=== PATIENT | male | born 1945 | race Caucasian/White ===

== ENCOUNTER → 2017-12-26 | Outpatient (CLI) | payer OTHER, BC | END | disposition home or self-care (01) | LOC: C.PATHSPEC 14:36 | PROVIDERS: ATTEND Dermatology | DX: L82.0 Inflamed seborrheic keratosis (principal) ==

== ENCOUNTER → 2018-01-01 | Outpatient (CLI) | payer OTHER, BC ==
[2018-01-01 09:34] LABS: BASO % 0.7 %; BASO ABS # 0.07 K/uL (0-0.2); EOS % 4.7 %; EOS ABS # 0.46 K/uL (0-0.5); HEMATOCRIT 44.7 % (42-52); HEMOGLOBIN 15.7 g/dL (14.0-18.0); IG# 0.05 K/uL (0.00-0.02); LYMPH % 24.9 %; LYMPH ABS # 2.44 K/uL (1.2-3.4); MEAN CELL VOLUME 91.2 fL (80-100); MEAN CORPUSCULAR HGB CONC 35.1 g/dl (32-36); MEAN PLATELET VOLUME 11.7 fL (7.4-10.4); MONO % 8.1 %; MONO ABS # 0.79 K/uL (0.11-0.59); NEUT % 61.1 %; PLATELET COUNT 337 K/uL (130-400); RED CELL DISTRIBUTION WIDTH CV 13.9 % (11.5-14.5); RED CELL DISTRIBUTION WIDTH SD 46.7 fL (36.4-46.3); WHITE BLOOD COUNT 9.81 K/uL (4.8-10.8)
[2018-01-01 09:36] LABS: HEMOGLOBIN A1C 6.9 % (4.5-5.6)
[2018-01-01 09:39] LABS: ALBUMIN 3.5 gm/dl (3.4-5.0); ALT/SGPT 40 U/L (12-78); BLOOD UREA NITROGEN 15 mg/dl (7-18); CALCIUM 9.6 mg/dl (8.5-10.1); CARBON DIOXIDE 27 mmol/L (21-32); CHOLESTEROL 153 mg/dl (0-200); CREATININE 0.87 mg/dl (0.60-1.40); GLUCOSE 166 mg/dl (70-99); POTASSIUM 3.9 mmol/L (3.5-5.1); SODIUM 135 mmol/L (136-145)
[2018-01-01 09:43] LABS: ALKALINE PHOSPHATASE 76 U/L (45-117); AST/SGOT 22 U/L (15-37); LDL CHOLESTEROL CALCULATED 79 mg/dl; TOTAL PROTEIN 7.3 gm/dl (6.4-8.2)
== END | disposition home or self-care (01) ==
LOC: C.LAB1850 07:17
PROVIDERS: ATTEND Internal Medicine
DX: Z00.00 Encounter for general adult medical examination without abnormal findings (principal); I10 Essential (primary) hypertension; E11.9 Type 2 diabetes mellitus without complications; E78.5 Hyperlipidemia, unspecified

== ENCOUNTER 2024-11-06 03:46 | Inpatient (IN) ==
[2024-11-06] MEDS: SODIUM CHLORIDE 0.9% 1,000 ML IV SCH (03:45)
[2024-11-06] MEDS: SODIUM CHLORIDE 0.9% 1,000 ML IV ONE ×2 (04:00→05:14)
[2024-11-06] MEDS: OPTIRAY 320 100ml IV ONE (04:26)
[2024-11-06] MEDS: NOREPINEPHRINE/D5W 4 MG/250 ML PLCT IV SCH (04:29)
[2024-11-06] MEDS ORDERED: STAT IV Infusion **Titration per Protocol STA (04:29)
[2024-11-06 04:40] LABS: Basophils # (auto) 0.01 K/uL (0.00-0.20); Basophils % (auto) 0.1 %; Eosinophils % (auto) 2.6 %; Hematocrit (blood only) 47.1 % (42.0-52.0); Hemoglobin 16.3 g/dl (14.0-18.0); Immature Granulocytes # (auto) 0.08 K/uL (0.01-0.20); Immature Granulocytes % (auto) 0.7 %; Lymphocytes # (auto) 1.54 K/uL (1.20-3.40); Lymphocytes % (auto) 13.3 %; Mean Corpuscular Hemoglobin 31.9 pg (25.0-34.0); Mean Corpuscular Hgb Conc 34.6 g/dL (32.0-36.0); Mean Corpuscular Volume 92.2 fL (80.0-100.0); Mean Platelet Volume 10.3 fL (9.4-12.4); Monocytes # (auto) 0.33 K/uL (0.11-0.59); Monocytes % (auto) 2.9 %; Neutrophils # (auto) 9.28 K/uL (1.40-6.50); Neutrophils % (auto) 80.4 %; Platelet Count 362 K/uL (130-400); RDW Coefficient of Variation 13.4 % (11.5-14.5); RDW Standard Deviation 45.6 fL (36.4-46.3); Red Blood Count 5.11 M/uL (4.70-6.10); White Blood Count 11.54 K/ul (4.8-10.8)
[2024-11-06 04:45] LABS: Appearance Urine Clear (Clear); Bilirubin Urine Negative (Negative); Blood Urine Negative (Negative); Color Urine Yellow; Glucose Urine UA Negative (Negative); Ketones Urine Negative (Negative); Leukocyte Esterase Urine Negative (Negative); Nitrite Urine Negative (Negative); Protein Urine Negative (Negative); Specific Gravity Urine 1.008 (1.000-1.030); Urobilinogen Urine Negative (Negative)
[2024-11-06] MEDS: NOREPINEPHRINE/D5W 4 MG/250 ML IV ONE (04:47)
[2024-11-06] MEDS: CEFEPIME 2000MG 2,000 MG/20 ML SYR IV STA (04:48)
[2024-11-06 04:56] LABS: Albumin Globulin Ratio 1.4 (0.9-2); BUN Creatinine Ratio 14.3 (10-20); Bilirubin,Total 0.5 mg/dl (0.2-1.0); Calcium 7.8 mg/dl (8.6-10.3); Creatinine Clr Calc Pharmacy 64.4 ml/min; Globulin 2.1 gm/dl (2.5-4.0); Total Protein 5.1 gm/dl (6.0-8.3)
[2024-11-06 05:04] LABS: Troponin I High Sensitivity 19.3 pg/ml (0-20)
[2024-11-06 05:06] LABS: INR 1.2 (0.9-1.1); Partial Thromboplastin Ratio 0.9; Partial Thromboplastin Time 24 Seconds (21-31); Prothrombin Time 12.5 Seconds (9.0-12.0)
--- NOTE | 2024-11-06 05:17 | CT Scan Report ---
EXAM: CT head/brain wo con CLINICAL HISTORY: FELT NAUSEA THEN FELL TO THE FLOOR TECHNIQUE: Axial non-contrast CT scan of the brain was performed from the skull base to the high parietal region. One of the following dose reduction techniques were utilized for this exam: Automated exposure control, adjustment of the mA and/or kV according to patient size, use of iterative reconstruction. COMPARISON: None. FINDINGS: Brain Parenchyma: Scattered millimetric foci of decreased attenuation are seen within the periventricular-subcortical white matter on both centrum semiovale. Otherwise, the brain parenchyma is normal in attenuation with no evidence of mass, hemorrhage, midline shift, hydrocephalus, extra-axial fluid, or acute infarction. Normal attenuation of the cerebellum, and brainstem. No evidence of acute infarct, hemorrhage, or mass effect. Ventricular System: Ventricles are normal in size and configuration. No evidence of hydrocephalus or ventricular enlargement. Subarachnoid Spaces: Normal sulci and cisterns. No evidence of subarachnoid hemorrhage or extra-axial fluid collections. Cerebellum and Brainstem: Normal size and signal. No masses, lesions, or areas of abnormal signal. Orbits: Normal appearance of the globes, optic nerves, and extraocular muscles. No evidence of orbital masses or abnormal signal. Sinuses: Bilateral moderate ethmoidal sinusitis. Bilateral minimal sphenoidal sinusitis. Mastoid Air Cells: Clear mastoid air cells. No evidence of mastoiditis. Skull: Normal skull morphology. IMPRESSION: 1. 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 2. No sizable acute pathology. If clinically suspected, further evaluation with MR recommended. 3. Bilateral moderate ethmoidal sinusitis. 4. Bilateral minimal sphenoidal sinusitis. Electronically signed by Mansoor Dallas 11-06-2024 05:17 AM
--- NOTE | 2024-11-06 05:23 | Emergency Department Note ---
Impression & Plan Sepsis, Atrial fibrillation with rapid ventricular response, Acute hypotension, Fall, Chronic anticoagulation, Hypothermia ED Provider Note CHIEF COMPLAINT: Fall, hypotension HISTORY OF PRESENT ILLNESS: This 79-year-old male patient with past medical history of atrial fibrillation, diabetes, hypertension, obesity, GERD presents to the emergency department by EMS after a fall in the bathroom. Patient states he woke up in the middle the night and felt as though he might need to use the bathroom with some abdominal discomfort. He made it onto the toilet, but did not have any success with a bowel movement. He states the next thing he knew he was on the floor. His heard him calling out and called the ambulance. The patient does take Eliquis for his atrial fibrillation. He states he was at a football alliance party this evening and had 2 glasses of wine. This is not uncommon for him. He denies any chest pain or shortness of breath, fevers, vomiting or diarrhea. He notes a mass in the epigastric region that they believe is related to "scar tissue" after abdominal surgery years ago secondary to perforated appendicitis. REVIEW OF SYSTEMS: A review of systems was performed with positives and pertinent negatives listed in the history of present illness. 10 systems were reviewed and are otherwise negative. ALLERGIES: see below MEDICATIONS: see below PMH: see below SOCIAL HISTORY: see below DDx: Dehydration, acute kidney injury, pneumonia, UTI, bowel ischemia, bowel obstruction, colitis, sepsis among others. PHYSICAL EXAM: Vital signs reviewed. Noted to be hypothermic and hypotensive, slightly tachycardic. Hypoxic requiring nasal cannula oxygen. General: Somewhat ill-appearing 79-year-old male, in no significant distress. HEENT: No scleral icterus, PERRLA, neck supple. Atraumatic. Cardiovascular: Tachycardic and irregular. Pulmonary: Clear to auscultation bilaterally, normal work of breathing. Abdomen: Soft, nontender, nondistended, positive bowel sounds. Musculoskeletal: Atraumatic, no peripheral edema. Nontender to palpation over the cervical, thoracic and lumbar spines Neurologic: Patient awake alert and answers questions appropriately. Follows commands. Skin: Warm, dry, no rash. No ecchymosis or wounds to suggest trauma. EMERGENCY DEPARTMENT COURSE/MDM: This patient was evaluated and appeared to be in no significant distress however is noted to be hypothermic, hypoxic and hypotensive. Patient was awake and conversant although weak. IV access had been obtained, a second line was obtained in the emergency department. Patient's laboratory work is significant for a white count of 11.4, hemoglobin of 16, lactate of 5.6 with a K of 3.0. EKG was performed and reveals atrial fibrillation with RVR at 116 bpm. There is no evidence of acute ischemia. Due to the fall and chronic anticoagulation, trauma alert had been called. Patient was sent for CT imaging of the head, C-spine, chest, abdomen and pelvis. These images are significant for the right hepatic lobe with a subcapsular hypodense area that is read as perfusional changes versus laceration, however the patient's hemoglobin has remained stable, he has a negative FAST exam and this lesion is present on previous imaging. There is also an area of the left pubic bone which may represent osteitis. The patient has received 3 full liters of normal saline solution and is currently on Levophed being titrated up and remains hypotensive. Patient has been given cefepime and Flagyl IV. Wise catheter was placed and urine is negative. Consultation with Dr. Wolfe of the hospitalist service has been placed. Family has been updated on multiple occasions. Critical care nurse practitioner is at the bedside. MONITORING: An order for cardiac monitoring was placed and the patient is noted to be in a rapid atrial fibrillation at 110 beats per minute. RADIOLOGY: CT imaging of the head to my interpretation reveals no evidence of acute intracranial abnormality. CT imaging of the cervical spine per radiology reveals no evidence of acute fracture. CT imaging of the chest per radiology reveals no pulmonary consolidation, no fracture. CT imaging of the abdomen and pelvis per radiology: IMPRESSION: 1. Right hepatic lobe segment VII subcapsular hypodense area that could represent perfusional changes versus laceration. Advise sonography correlation and follow-up. 2. Shrunken dysmorphic splenic configuration with calcifications. 3. Mildly enlarged prostate. 4. Colonic diverticulosis. No diverticulitis. 5. Diffuse gastric wall thickening, possibly gastritis. 6. Left pubic bone patchy sclerosis and air loculi, possibly osteitis pubis yet associated stress fracture cannot be excluded. EKG: EKG to my interpretation reveals an atrial fibrillation with rapid ventricular response at [address]pm[address] QTc 5[address] segments. No PVC, no PAC. DISPOSITION: Admission I have personally spent greater than 60 minutes of critical care time in the direct management of this patient. This includes bedside care, interpretation of diagnostic studies, and testing, discussion with consultants, patient, and family members, and other required patient management activities. This 60 minutes is in excess of all separately billable procedures. Insert critical care Past Med/Surg History Problem List (Updated 11/06/24 @ 06:44 by Karina Kent MD) Hypothermia (Acute) Chronic anticoagulation (Acute) Fall (Acute) Acute hypotension (Acute) Atrial fibrillation with rapid ventricular response (Acute) Sepsis (Acute) Obesity (BMI 30.0-34.9) Hypertension Atrial fibrillation (Chronic) Diabetes mellitus type 2 in obese Diabetic neuropathy Hyperlipidemia GERD (gastroesophageal reflux disease) Liver mass MR 03/2023 indeterminate, CT indeterminate 09/2023 repeat 1 yr Osteoarthritis (Chronic) Lumbar stenosis with neurogenic claudication Lumbar radiculopathy, chronic Lumbar degenerative disc disease Age-related macular degeneration Medical History Coronary artery calcification seen on CAT scan Diverticulosis AVB (atrioventricular block) Renal cyst, left MRI 08/2022, US 09/2022 simple cyst Tubular adenoma of colon 2018 History of melanoma in situ History of basal cell carcinoma Surgical History H/O colonoscopy 10/2023 Status post Mohs surgery S/P splenectomy S/P appendectomy Family History Father Colorectal cancer Coronary heart disease Mother Amyotrophic lateral sclerosis (ALS) Denies family history of Ovarian cancer Prostate cancer Myocardial infarction Breast cancer Lung cancer Social History Smoking Status: Never smoker Second Hand Exposure: No; Do You Dip or Chew Tobacco: No; Hx Alcohol Use: Yes Alcohol type: wine Alcohol Intake Frequency: 4 or More x per/Week Hx Substance Use: No Preferred Language: Micronesian Communication Ability: Effective Visual Impairment: Limited Hearing Ability: Normal Beliefs That Will Affect Care: None marital status: Current Living Situation: Spouse and Family current occupational status: employed current occupation: [employer] How many Children do You have: 2 Feels Safe at Home: Yes Childhood Exposure to Second-Hand Smoke: No Diet: regular caffeine: Yes (2 cups of coffee daily ) during the past year weight has: decreased > 10 lbs Dental Care, Regularly: Yes Physical Activity Frequency: Does not Exercise Seatbelt Use: always Sunscreen Use: Yes Do you think of yourself as: straight/heterosexual Assistive Devices: Glasses Allergies Allergies Allergy/AdvReac Type Severity Reaction Status Date / Time Sulfa (Sulfonamide Allergy Unknown Rash Verified 10/27/24 11:07 Antibiotics) Home Meds Home Medications Medication Instructions Recorded Confirmed blood sugar diagnostic (OneTouch #10 ea 07/22/19 10/27/24 Verio test strips) multivitamin 1 tab PO DAILY 07/22/19 10/27/24 aspirin 81 mg tablet 81 mg PO DAILY 08/05/19 10/27/24 ibuprofen 200 mg capsule 400 mg PO Q12H PRN fever or pain 08/05/19 10/27/24 vitamins A,C,N-egya-ypvufn 4,296 4 cap PO DAILY 09/16/23 10/27/24 mcg-226 mg-90 mg capsule (PreserVision AREDS) Previous Rx's Medication Instructions Recorded lancets 28 gauge (OneTouch #25 ea 08/06/19 SureSoft Lancing Devices) amlodipine 10 mg tablet 10 mg PO DAILY #90 tabs 06/15/24 apixaban 5 mg tablet (Eliquis) 5 mg PO BID #180 tabs 07/16/24 tirzepatide 5 mg/0.5 mL 5 mg (0.5 mL) subcut .weekly #2 mL 09/28/24 subcutaneous pen injector (Simoneunshola) lisinopril 40 mg tablet See Rx Instructions .Route 10/05/24 .COMPLEX #90 tabs pantoprazole 40 mg tablet,delayed 40 mg PO DAILY #90 tabs 10/05/24 release atorvastatin 80 mg tablet 80 mg PO DAILY #90 tabs 10/13/24 atenolol 100 mg tablet 100 mg PO DAILY #90 tabs 10/27/24 Results & Data (ED) Vital Signs Vital Signs - 24 hr 11/06/24 03:40 11/06/24 03:40 11/06/24 03:40 Temperature 33.5 C L 33.5 C L 33.5 C L Temperature Source Rectal Rectal Pulse Rate 96 H 104 H Pulse Rate [Apical] 100 H Pulse Rate from SpO2 Sensor Pulse Rhythm Irregular Pulse Rhythm [Apical] Regular Pulse Strength Normal Pulse Strength [Apical] Normal Pulse Strength [Bilateral Femoral] Normal Respiratory Rate 14 18 18 Respiratory Effort / Characteristics Non-Labored Spontaneous Non-Labored Spontaneous Respiratory Depth Normal Normal Respiratory Pattern Regular Regular Blood Pressure 78/62 L 77/61 L Blood Pressure [Left Arm] 98/59 L Blood Pressure Mean 67 Blood Pressure Mean [Left Arm] 72 Blood Pressure Position Lying Blood Pressure Position [Left Arm] Lying Pulse Oximetry 99 97 98 Oxygen Delivery Method Nasal Cannula Nasal Cannula Nasal Cannula Oxygen Flow Rate 6 6 6 Sepsis Recent Fever Within 48 Hours No Sepsis New/Unexplained Change in Mental Status No Sepsis Action Taken by Nursing Physician Notified Oxygen Flow Rate - Titration Pulse Oximetry Post Tiitration 11/06/24 03:51 11/06/24 04:05 11/06/24 04:20 Temperature 33.5 C L Temperature Source Wise Cath ( Temp Sensing) Pulse Rate 120 H 109 H Pulse Rate [Apical] 104 H Pulse Rate from SpO2 Sensor 109 H Pulse Rhythm Pulse Rhythm [Apical] Pulse Strength Pulse Strength [Apical] Pulse Strength [Bilateral Femoral] Respiratory Rate 14 20 Respiratory Effort / Characteristics Non-Labored Spontaneous Respiratory Depth Normal Respiratory Pattern Regular Blood Pressure 67/49 L Blood Pressure [Left Arm] 93/69 L Blood Pressure Mean 53 Blood Pressure Mean [Left Arm] 77 Blood Pressure Position Blood Pressure Position [Left Arm] Lying Pulse Oximetry 98 100 Oxygen Delivery Method Nasal Cannula Nasal Cannula Oxygen Flow Rate 6 6 Sepsis Recent Fever Within 48 Hours Sepsis New/Unexplained Change in Mental Status Sepsis Action Taken by Nursing Oxygen Flow Rate - Titration Pulse Oximetry Post Tiitration 11/06/24 04:30 11/06/24 04:43 11/06/24 04:43 Temperature Temperature Source Pulse Rate 99 H 101 H Pulse Rate [Apical] Pulse Rate from SpO2 Sensor 99 H Pulse Rhythm Pulse Rhythm [Apical] Pulse Strength Pulse Strength [Apical] Pulse Strength [Bilateral Femoral] Respiratory Rate 20 20 Respiratory Effort / Characteristics Respiratory Depth Respiratory Pattern Blood Pressure 78/62 L Blood Pressure [Left Arm] Blood Pressure Mean 64 Blood Pressure Mean [Left Arm] Blood Pressure Position Blood Pressure Position [Left Arm] Pulse Oximetry 98 99 98 Oxygen Delivery Method Nasal Cannula Nasal Cannula Nasal Cannula Oxygen Flow Rate 4 6 2 Sepsis Recent Fever Within 48 Hours Sepsis New/Unexplained Change in Mental Status Sepsis Action Taken by Nursing Oxygen Flow Rate - Titration 2 Pulse Oximetry Post Tiitration 98 11/06/24 04:45 11/06/24 05:00 11/06/24 05:05 Temperature 33.7 C L Temperature Source Wise Cath ( Temp Sensing) Pulse Rate 114 H 105 H Pulse Rate [Apical] 106 H Pulse Rate from SpO2 Sensor 114 H 105 H Pulse Rhythm Pulse Rhythm [Apical] Pulse Strength Pulse Strength [Apical] Pulse Strength [Bilateral Femoral] Respiratory Rate 18 18 18 Respiratory Effort / Characteristics Non-Labored Spontaneous Respiratory Depth Normal Respiratory Pattern Regular Blood Pressure 95/68 L 69/54 L Blood Pressure [Left Arm] 76/46 L Blood Pressure Mean 79 57 Blood Pressure Mean [Left Arm] 56 Blood Pressure Position Blood Pressure Position [Left Arm] Lying Pulse Oximetry 98 99 99 Oxygen Delivery Method Nasal Cannula Nasal Cannula Room Air Oxygen Flow Rate 4 2 Sepsis Recent Fever Within 48 Hours Sepsis New/Unexplained Change in Mental Status Sepsis Action Taken by Nursing Oxygen Flow Rate - Titration Pulse Oximetry Post Tiitration 11/06/24 05:10 11/06/24 05:20 11/06/24 05:31 Temperature Temperature Source Pulse Rate 102 H 97 H 104 H Pulse Rate [Apical] Pulse Rate from SpO2 Sensor 102 H 97 H 104 H Pulse Rhythm Pulse Rhythm [Apical] Pulse Strength Pulse Strength [Apical] Pulse Strength [Bilateral Femoral] Respiratory Rate 20 18 20 Respiratory Effort / Characteristics Respiratory Depth Respiratory Pattern Blood Pressure 80/55 L 68/57 L 79/67 L Blood Pressure [Left Arm] Blood Pressure Mean 66 62 71 Blood Pressure Mean [Left Arm] Blood Pressure Position Blood Pressure Position [Left Arm] Pulse Oximetry 99 99 99 Oxygen Delivery Method Room Air Room Air Room Air Oxygen Flow Rate Sepsis Recent Fever Within 48 Hours Sepsis New/Unexplained Change in Mental Status Sepsis Action Taken by Nursing Oxygen Flow Rate - Titration Pulse Oximetry Post Tiitration 11/06/24 05:45 11/06/24 05:45 11/06/24 05:54 Temperature Temperature Source Pulse Rate 99 H 114 H 114 H Pulse Rate [Apical] Pulse Rate from SpO2 Sensor 99 H 114 H 110 H Pulse Rhythm Pulse Rhythm [Apical] Pulse Strength Pulse Strength [Apical] Pulse Strength [Bilateral Femoral] Respiratory Rate 20 20 23 Respiratory Effort / Characteristics Respiratory Depth Respiratory Pattern Blood Pressure 85/59 L 85/59 L 71/53 L Blood Pressure [Left Arm] Blood Pressure Mean 62 62 59 Blood Pressure Mean [Left Arm] Blood Pressure Position Blood Pressure Position [Left Arm] Pulse Oximetry 99 100 100 Oxygen Delivery Method Room Air Room Air Room Air Oxygen Flow Rate Sepsis Recent Fever Within 48 Hours Sepsis New/Unexplained Change in Mental Status Sepsis Action Taken by Nursing Oxygen Flow Rate - Titration Pulse Oximetry Post Tiitration 11/06/24 06:00 Temperature 34.0 C L Temperature Source Wise Cath ( Temp Sensing) Pulse Rate Pulse Rate [Apical] 109 H Pulse Rate from SpO2 Sensor Pulse Rhythm Pulse Rhythm [Apical] Pulse Strength Pulse Strength [Apical] Pulse Strength [Bilateral Femoral] Respiratory Rate 18 Respiratory Effort / Characteristics Non-Labored Spontaneous Respiratory Depth Normal Respiratory Pattern Regular Blood Pressure Blood Pressure [Left Arm] 85/53 L Blood Pressure Mean Blood Pressure Mean [Left Arm] 63 Blood Pressure Position Blood Pressure Position [Left Arm] Pulse Oximetry 99 Oxygen Delivery Method Room Air Oxygen Flow Rate Sepsis Recent Fever Within 48 Hours Sepsis New/Unexplained Change in Mental Status Sepsis Action Taken by Nursing Oxygen Flow Rate - Titration Pulse Oximetry Post Tiitration Home Medications Current Medication List: was personally reviewed by me Laboratory Data Attestation: I reviewed the patient's lab results. 11/06/24 04:26 11/06/24 04:26 Lab Results 11/06/24 11/06/24 11/06/24 Range/Units 04:26 04:27 04:31 WBC 11.54 H (4.8-10.8) K/ul RBC 5.11 (4.70-6.10) M/uL Hgb 16.3 (14.0-18.0) g/dl Hct 47.1 (42.0-52.0) % MCV 92.2 (80.0-100.0) fL MCH 31.9 (25.0-34.0) pg MCHC 34.6 (32.0-36.0) g/dL RDW Std Deviation 45.6 (36.4-46.3) fL RDW Coeff of Bambi 13.4 (11.5-14.5) % Plt Count 362 (130-400) K/uL MPV 10.3 (9.4-12.4) fL Immature Gran % (Auto) 0.7 % Neut % (Auto) 80.4 % Lymph % (Auto) 13.3 % Gates % (Auto) 2.9 % Eos % (Auto) 2.6 % Baso % (Auto) 0.1 % Neut # (Auto) 9.28 H (1.40-6.50) K/uL Lymph # (Auto) 1.54 (1.20-3.40) K/uL Gates # (Auto) 0.33 (0.11-0.59) K/uL Eos # (Auto) 0.30 (0.00-0.50) K/uL Baso # (Auto) 0.01 (0.00-0.20) K/uL Immature Gran # (Auto) 0.08 (0.01-0.20) K/uL PT 12.5 H (9.0-12.0) Seconds INR 1.2 H (0.9-1.1) APTT 24 (21-31) Seconds PTT Ratio 0.9 VBG pH (7.36-7.41) VBG pCO2 (38-50) mmHg VBG pO2 mmHg VBG HCO3 mmol/L VBG O2 Saturation % VBG Base Excess mEq/L Sodium 133 L (136-145) mmol/L Potassium 3.0 L (3.5-5.1) mmol/L Chloride 103 (98-107) mmol/L Carbon Dioxide 18 L (21-32) mmol/L Anion Gap 12 H (3-11) BUN 15 (6-23) mg/dl Creatinine 1.05 (0.6-1.4) mg/dl Est Cr Clr Drug Dosing 64.4 ml/min eGFR 73.11 BUN/Creatinine Ratio 14.3 (10-20) Glucose 263 H (70-99(Fasting)) mg/dl Lactate 5.6 H* (0.4-2.0) mmol/L Calcium 7.8 L (8.6-10.3) mg/dl Ionized Calcium (1.12-1.32) mmol/L Phosphorus 4.5 (2.5-4.9) mg/dl Magnesium 1.9 (1.7-2.4) mg/dl Total Bilirubin 0.5 (0.2-1.0) mg/dl AST 34 (13-39) U/L ALT 29 (7-52) U/L Alkaline Phosphatase 70 (34-104) U/L Total Creatine Kinase 334 H (30-223) U/L Troponin I High Sens 19.3 (0-20) pg/ml Total Protein 5.1 L (6.0-8.3) gm/dl Albumin 3.0 L (3.4-5.0) gm/dl Globulin 2.1 L (2.5-4.0) gm/dl Albumin/Globulin Ratio 1.4 (0.9-2) Lipase 42 (11-82) U/L Procalcitonin 0.03 (0-0.5) ng/ml Random Cortisol 26.14 mcg/dl Urine Color Urine Appearance (Clear) Urine pH (4.5-7.5) Ur Specific [place] (1.000-1.030) Urine Protein (Negative) Urine Glucose (UA) (Negative) Urine Ketones (Negative) Urine Blood (Negative) Urine Nitrite (Negative) Urine Bilirubin (Negative) Urine Urobilinogen (Negative) Ur Leukocyte Esterase (Negative) Ethyl Alcohol mg/dL < 10.0 (<10.0) mg/dl Adenovirus (PCR) Not Detected (NotDetected) B. pertussis DNA (PCR) Not Detected (NotDetected) B.parapertussis DNA PCR Not Detected (NotDetected) C. pneumoniae DNA (PCR) Not Detected (NotDetected) Coronavirus OC43 (PCR) Not Detected (NotDetected) Coronavirus HKU1 (PCR) Not Detected (NotDetected) Coronavirus 229E (PCR) Not Detected (NotDetected) SARS-CoV-2 (PCR) Not Detected (NotDetected) Coronavirus NL63 (PCR) Not Detected (NotDetected) Human Metapneumovir PCR Not Detected (NotDetected) Influenza Type A (PCR) Not Detected (NotDetected) Influenza Type B (PCR) Not Detected (NotDetected) M. pneumoniae (PCR) Not Detected (NotDetected) Parainfluenza 1 (PCR) Not Detected (NotDetected) Parainfluenza 2 (PCR) Not Detected (NotDetected) Parainfluenza 3 (PCR) Not Detected (NotDetected) Parainfluenza 4 (PCR) Not Detected (NotDetected) RSV (PCR) Not Detected (NotDetected) Entero/Rhino (PCR) Not Detected (NotDetected) 11/06/24 11/06/24 Range/Units 04:38 05:30 WBC (4.8-10.8) K/ul RBC (4.70-6.10) M/uL Hgb (14.0-18.0) g/dl Hct (42.0-52.0) % MCV (80.0-100.0) fL MCH (25.0-34.0) pg MCHC (32.0-36.0) g/dL RDW Std Deviation (36.4-46.3) fL RDW Coeff of Bambi (11.5-14.5) % Plt Count (130-400) K/uL MPV (9.4-12.4) fL Immature Gran % (Auto) % Neut % (Auto) % Lymph % (Auto) % Gates % (Auto) % Eos % (Auto) % Baso % (Auto) % Neut # (Auto) (1.40-6.50) K/uL Lymph # (Auto) (1.20-3.40) K/uL Gates # (Auto) (0.11-0.59) K/uL Eos # (Auto) (0.00-0.50) K/uL Baso # (Auto) (0.00-0.20) K/uL Immature Gran # (Auto) (0.01-0.20) K/uL PT (9.0-12.0) Seconds INR (0.9-1.1) APTT (21-31) Seconds PTT Ratio VBG pH 7.31 L (7.36-7.41) VBG pCO2 33 L (38-50) mmHg VBG pO2 52 mmHg VBG HCO3 17 mmol/L VBG O2 Saturation 79.5 % VBG Base Excess -8.6 mEq/L Sodium (136-145) mmol/L Potassium (3.5-5.1) mmol/L Chloride (98-107) mmol/L Carbon Dioxide (21-32) mmol/L Anion Gap (3-11) BUN (6-23) mg/dl Creatinine (0.6-1.4) mg/dl Est Cr Clr Drug Dosing ml/min eGFR BUN/Creatinine Ratio (10-20) Glucose (70-99(Fasting)) mg/dl Lactate (0.4-2.0) mmol/L Calcium (8.6-10.3) mg/dl Ionized Calcium 1.06 L (1.12-1.32) mmol/L Phosphorus (2.5-4.9) mg/dl Magnesium (1.7-2.4) mg/dl Total Bilirubin (0.2-1.0) mg/dl AST (13-39) U/L ALT (7-52) U/L Alkaline Phosphatase (34-104) U/L Total Creatine Kinase (30-223) U/L Troponin I High Sens (0-20) pg/ml Total Protein (6.0-8.3) gm/dl Albumin (3.4-5.0) gm/dl Globulin (2.5-4.0) gm/dl Albumin/Globulin Ratio (0.9-2) Lipase (11-82) U/L Procalcitonin (0-0.5) ng/ml Random Cortisol mcg/dl Urine Color Yellow Urine Appearance Clear (Clear) Urine pH 7.0 (4.5-7.5) Ur Specific [place] 1.008 (1.000-1.030) Urine Protein Negative (Negative) Urine Glucose (UA) Negative (Negative) Urine Ketones Negative (Negative) Urine Blood Negative (Negative) Urine Nitrite Negative (Negative) Urine Bilirubin Negative (Negative) Urine Urobilinogen Negative (Negative) Ur Leukocyte Esterase Negative (Negative) Ethyl Alcohol mg/dL (<10.0) mg/dl Adenovirus (PCR) (NotDetected) B. pertussis DNA (PCR) (NotDetected) B.parapertussis DNA PCR (NotDetected) C. pneumoniae DNA (PCR) (NotDetected) Coronavirus OC43 (PCR) (NotDetected) Coronavirus HKU1 (PCR) (NotDetected) Coronavirus 229E (PCR) (NotDetected) SARS-CoV-2 (PCR) (NotDetected) Coronavirus NL63 (PCR) (NotDetected) Human Metapneumovir PCR (NotDetected) Influenza Type A (PCR) (NotDetected) Influenza Type B (PCR) (NotDetected) M. pneumoniae (PCR) (NotDetected) Parainfluenza 1 (PCR) (NotDetected) Parainfluenza 2 (PCR) (NotDetected) Parainfluenza 3 (PCR) (NotDetected) Parainfluenza 4 (PCR) (NotDetected) RSV (PCR) (NotDetected) Entero/Rhino (PCR) (NotDetected) Administered Medications Norepinephrine Bitartrate (Levophed/D5w) 4 mg in 250 mls @ 35.25 mls/hr IV .Q7H6M HENNA; Protocol Stop: 12/06/24 04:29 Last Titration: 11/06/24 05:50 Dose: 0.2 mcg/kg/min, 70.5 mls/hr Documented By: LESLIE Co-signed By: MASHA Titration: 11/06/24 05:20 Dose: 0.18 mcg/kg/min, 63.5 mls/hr Documented By: RLW Co-signed By: Titration: 11/06/24 05:15 Dose: 0.16 mcg/kg/min, 56.4 mls/hr Documented By: LESLIE Co-signed By: Titration: 11/06/24 05:10 Dose: 0.14 mcg/kg/min, 49.4 mls/hr Documented By: LESLIE Co-signed By: NORA Titration: 11/06/24 05:04 Dose: 0.12 mcg/kg/min, 42.3 mls/hr Documented By: LESLIE Co-signed By: Titration: 11/06/24 04:57 Dose: 0.1 mcg/kg/min, 35.3 mls/hr Documented By: LESLIE Co-signed By: NORA Titration: 11/06/24 04:50 Dose: 0.07 mcg/kg/min, 24.7 mls/hr Documented By: LESLIE Co-signed By: MICHELA Admin: 11/06/24 04:29 Dose: 0.05 mcg/kg/min, 17.6 mls/hr Documented By: LESLIE Co-signed By: NORA Potassium Chloride (K Marquis / Wtr) 10 meq in 100 mls @ 100 mls/hr IV Q1H HENNA Stop: 11/06/24 07:14 Last Admin: 11/06/24 05:41 Dose: 100 mls/hr Documented By: LESLIE Sodium Chloride (Nss) 1,000 mls @ 200 mls/hr IV .Q5H ONE Stop: 11/06/24 10:10 Last Admin: 11/06/24 05:14 Dose: 200 mls/hr Documented By: LESLIE Discontinued Medications Sodium Chloride (Nss) 1,000 mls @ 999 mls/hr IV .Q1H1M HENNA Stop: 11/06/24 05:00 Last Infusion: 11/06/24 04:46 Dose: Infused Documented By: Admin: 11/06/24 03:45 Dose: 999 mls/hr Documented By: LESLIE Cefepime HCl (Maxipime 2000mg) 2,000 mg in 20 mls @ 5 mls/min IV NOW STA; Protocol Stop: 11/06/24 04:37 Last Admin: 11/06/24 04:48 Dose: 5 mls/min Documented By: LESLIE Sodium Chloride (Nss) 1,000 mls @ 999 mls/hr IV .Q1H1M ONE Stop: 11/06/24 05:47 Last Infusion: 11/06/24 05:01 Dose: Infused Documented By: Admin: 11/06/24 04:00 Dose: 999 mls/hr Documented By: LESLIE Metronidazole (Flagyl) 500 mg in 100 mls @ 100 mls/hr IV NOW STA; Protocol Stop: 11/06/24 06:01 Last Admin: 11/06/24 05:38 Dose: 100 mls/hr Documented By: LESLIE Ioversol (Optiray 320 100ml) 100 ml IV ONCE ONE Stop: 11/06/24 04:27 Last Admin: 11/06/24 04:26 Dose: 93 ml Documented By: OSCAR Norepinephrine Bitartrate (Norepinephrine/D5w 4 Mg/250 Ml) Confirm Administered Dose 4 mg IV .STK-MED ONE Stop: 11/06/24 04:11 Last Admin: 11/06/24 04:47 Dose: Not Given Documented By: LESLIE Imaging Data Radiologist's Impression: Abdomen/Pelvis CT 11/06/24 03:53 EXAM: CT abd pelvis IV con only CLINICAL HISTORY: FELT NAUSEA THEN FELL TO THE FLOOR. TECHNIQUE: A CT scan of the abdomen and pelvis was performed with IV contrast administration. Coronal and sagittal reconstructive images were also obtained. 93 ml of Optiray was administered intravenously. One of the following dose reduction techniques was utilized for this exam: Automated exposure control, adjustment of the mA and/or kV according to patient size, and use of iterative reconstruction. CT scan performed according to ALARA principles. DLP: 3583.39 mGy-cm, CTDI: 120.44 mGy. COMPARISON: None. FINDINGS: Average-sized liver showing homogenous parenchymal attenuation with segment VII subcapsular hypodense area. No dilated intra or extra-hepatic biliary tracts. Distended gall bladder showing no obvious radiodense calculi. Clear surrounding fat planes with no sizeable collections. Normal appearance of the pancreas with clear surrounding fat planes. Shrunken dysmorphic splenic configuration with calcifications. attenuated splenic artery The adrenal glands and IVC are unremarkable. Aortoiliac atheromatous calcifications. Both kidneys are of average size and show a smooth outline and preserved parenchymal thickness. No renal calculi. No hydronephrosis. Left renal hypodense cortical cysts, the largest 5 cm. The urinary bladder is distended showing no obvious masses. Mildly enlarged prostate. Few pelvic phleboli. No free intraperitoneal air. No pelvi-abdominal encysted collections. No obvious pathologically enlarged lymph nodes. left inguinal fat contaning hernia The appendix is not identified. No obvious right iliac inflammatory changes. Colonic fecal loading. Colonic diverticulosis. No diverticulitis. The rest of the ascending colon, the transverse colon, the descending colon, visualized small bowel loops are unremarkable. Diffuse gastric wall thickening. Scanned osseous structures show no osseous destruction. Thoracolumbar spondylosis. Left pubic bone patchy sclerosis and air loculi, possibly osteitis pubis yet associated stress fracture cannot be excluded. Degenerative changes of the sacroiliac joints. IMPRESSION: 1. Right hepatic lobe segment VII subcapsular hypodense area that could represent perfusional changes versus laceration. Advise sonography correlation and follow-up. 2. Shrunken dysmorphic splenic configuration with calcifications. 3. Mildly enlarged prostate. 4. Colonic diverticulosis. No diverticulitis. 5. Diffuse gastric wall thickening, possibly gastritis. 6. Left pubic bone patchy sclerosis and air loculi, possibly osteitis pubis yet associated stress fracture cannot be excluded. Electronically signed by Mansoor Dallas 11-06-2024 05:[address] 11/06/24 03:53 EXAM: CT cervical spine wo con CLINICAL HISTORY: FELT NAUSEA THEN FELL TO THE FLOOR TECHNIQUE: Multiple axial images of CT cervical spine without contrast was submitted in bone and soft tissue window. One of the following dose reduction techniques were utilized for this exam: Automated exposure control, adjustment of the mA and/or kV according to patient size, use of iterative reconstruction. CT scan performed according to ALARA principles. Automated exposure control used during the exam. DLP 3583.39 mGy-cm COMPARISON: none FINDINGS: Straightened cervical curve denoting myospasm. Antrolisthesis of C7 over T1 and to less extent C3 over C4. Mild retrolisthesis of C5 over C6 and C6 over C7. The examined vertebral bodies show no structural collapse or posterior neural elements fractures. No vertebral fractures or acute dislocation. Degenerative changes of the atlanto-odontoid articulation with related calcifications. Cervical spondylodegenerative changes evident by marginal osteophytic lipping and multilevel subchondral sclerosis of the examined vertebral end with multilevel disc spaces narrowing. Patchy sclerosis of C5 down to C7 vertebrae. Bilateral C3-C4 down to C6-C7 degenerative unco-vertebral arthropathy with osteophytes formation seen encroaching upon the corresponding neural exit foramina. Multilevel cervico-thoracic degenerative facet arthropathy. Multilevel ligamenta flava subtle calcifications. C3-C4 down to C7-T1 diffuse disc bulges osteophyte complex indenting the theca and encroaching upon the related neural exit foramina. No developmental spinal canal tightness. No paraspinal mases. Vascular atheromatous calcifications. IMPRESSION: 1. No acute vertebral fractures or dislocation. 2. Straightened cervical curve denoting myospasm. 3. Antrolisthesis of C7 over T1 and to less extent C3 over C4. 4. Mild retrolisthesis of C5 over C6 and C6 over C7. 5. Cervical spondylodegenerative changes with multilevel uncovertebral and facet arthropathy along with C3-C4 down to C7-T1 variable degrees of diffuse disc bulges/osteophyte complex inducing spinal canal and neural exit pathway stenosis. Electronically signed by Mansoor Dallas 11-06-2024 05:[address] 11/06/24 03:53 EXAM: CT chest diagnostic w con CLINICAL HISTORY: FELT NAUSEA THEN FELL TO THE FLOOR. TECHNIQUE: Contiguous axial CT images of the chest were acquired with the administration of intravenous contrast. Coronal and sagittal reconstructions were obtained. 93 ml of Optiray 320 was administered intravenously. One of the following dose reduction techniques was utilized for this exam: Automated exposure control, adjustment of the mA and/or kV according to patient size, and use of iterative reconstruction. CT scan performed according to ALARA principles. DLP: 3583.39 mGy-cm, CTDI: 120.3 mGy. COMPARISON: None. FINDINGS: No obvious pulmonary masses, consolidations, or ground glass opacities. Bilateral pulmonary predominantly basal atelectatic plates. Patent homogenously opacified pulmonary artery and its branches. Patent thoracic aorta with no dissecting intimal flaps. Mild cardiomegaly of left atrioventricular preponderance. No obvious cardiac abnormalities were detected. No pleural or pericardial effusion. No pathologically enlarged mediastinal lymph nodes. Patent tracheobronchial tree. There is no definite mass lesion in the chest wall. No evidence of vertebral structural collapse or dislocation. Degenerative changes of the thoracic spine. No pathologically enlarged hilar or mediastinal lymph nodes are noted. Scanned osseous structures show no destruction. Abdominal findings are discussed separately. IMPRESSION: 1. No obvious pulmonary masses, consolidations, or ground glass opacities. 2. Mild cardiomegaly. Electronically signed by Mansoor Dallas 11-06-2024 05:[address] 11/06/24 03:53 EXAM: CT head/brain wo con CLINICAL HISTORY: FELT NAUSEA THEN FELL TO THE FLOOR TECHNIQUE: Axial non-contrast CT scan of the brain was performed from the skull base to the high parietal region. One of the following dose reduction techniques were utilized for this exam: Automated exposure control, adjustment of the mA and/or kV according to patient size, use of iterative reconstruction. COMPARISON: None. FINDINGS: Brain Parenchyma: Scattered millimetric foci of decreased attenuation are seen within the periventricular-subcortical white matter on both centrum semiovale. Otherwise, the brain parenchyma is normal in attenuation with no evidence of mass, hemorrhage, midline shift, hydrocephalus, extra-axial fluid, or acute infarction. Normal attenuation of the cerebellum, and brainstem. No evidence of acute infarct, hemorrhage, or mass effect. Ventricular System: Ventricles are normal in size and configuration. No evidence of hydrocephalus or ventricular enlargement. Subarachnoid Spaces: Normal sulci and cisterns. No evidence of subarachnoid hemorrhage or extra-axial fluid collections. Cerebellum and Brainstem: Normal size and signal. No masses, lesions, or areas of abnormal signal. Orbits: Normal appearance of the globes, optic nerves, and extraocular muscles. No evidence of orbital masses or abnormal signal. Sinuses: Bilateral moderate ethmoidal sinusitis. Bilateral minimal sphenoidal sinusitis. Mastoid Air Cells: Clear mastoid air cells. No evidence of mastoiditis. Skull: Normal skull morphology. IMPRESSION: 1. 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 2. No sizable acute pathology. If clinically suspected, further evaluation with MR recommended. 3. Bilateral moderate ethmoidal sinusitis. 4. Bilateral minimal sphenoidal sinusitis. Electronically signed by Mansoor Dallas 11-06-2024 05:17 AM Discharge Plan Visit Data Chief Complaint: Trauma Stated Complaint: Unresponsive ED Provider: Karina Kent Discharge Problem: Sepsis, Atrial fibrillation with rapid ventricular response, Acute hypotension, Fall, Chronic anticoagulation, Hypothermia Forms Stand Alone Forms: [facility] Prescriptions Prescriptions: No Action amlodipine 10 mg tablet 10 mg PO DAILY Qty: 90 3RF Eliquis 5 mg tablet 5 mg PO BID Qty: 180 3RF Mounjaro 5 mg/0.5 mL pen injector 5 mg subcut .weekly Qty: 2 2RF pantoprazole 40 mg tablet,delayed release (DR/EC) 40 mg PO DAILY Qty: 90 3RF lisinopril 40 mg tablet See Rx Instructions .ROUTE .COMPLEX Qty: 90 3RF Dose Instruction: TAKE 1 TABLET (40 MG) ORALLY DAILY Rx Instructions: TAKE 1 TABLET (40 MG) ORALLY DAILY atorvastatin 80 mg tablet 80 mg PO DAILY Qty: 90 3RF (DME) lancets [[employer] Lancing [employer]] 28 gauge misc See Dose Instructions .ROUTE .MEDSUPPLY Qty: 25 0RF Dose Instruction: As directed Rx Instructions: As directed (DME) OneTouch Verio test strips strip See Dose Instructions .ROUTE .MEDSUPPLY Qty: 10 Rx Instructions: As directed multivitamin tablet 1 tab PO DAILY aspirin 81 mg tablet 81 mg PO DAILY ibuprofen 200 mg capsule 400 mg PO Q12H PRN (Reason: fever or pain) PreserVision AREDS 4,296 mcg-226 mg-90 mg capsule 4 cap PO DAILY atenolol 100 mg tablet 100 mg PO DAILY Qty: 90 3RF Referrals Referrals: PCP,NO [Primary Care Provider] -
[2024-11-06 05:26] LABS: Magnesium 1.9 mg/dl (1.7-2.4)
--- NOTE | 2024-11-06 05:28 | CT Scan Report ---
EXAM: CT chest diagnostic w con CLINICAL HISTORY: FELT NAUSEA THEN FELL TO THE FLOOR. TECHNIQUE: Contiguous axial CT images of the chest were acquired with the administration of intravenous contrast. Coronal and sagittal reconstructions were obtained. 93 ml of Optiray 320 was administered intravenously. One of the following dose reduction techniques was utilized for this exam: Automated exposure control, adjustment of the mA and/or kV according to patient size, and use of iterative reconstruction. CT scan performed according to ALARA principles. DLP: 3583.39 mGy-cm, CTDI: 120.3 mGy. COMPARISON: None. FINDINGS: No obvious pulmonary masses, consolidations, or ground glass opacities. Bilateral pulmonary predominantly basal atelectatic plates. Patent homogenously opacified pulmonary artery and its branches. Patent thoracic aorta with no dissecting intimal flaps. Mild cardiomegaly of left atrioventricular preponderance. No obvious cardiac abnormalities were detected. No pleural or pericardial effusion. No pathologically enlarged mediastinal lymph nodes. Patent tracheobronchial tree. There is no definite mass lesion in the chest wall. No evidence of vertebral structural collapse or dislocation. Degenerative changes of the thoracic spine. No pathologically enlarged hilar or mediastinal lymph nodes are noted. Scanned osseous structures show no destruction. Abdominal findings are discussed separately. IMPRESSION: 1. No obvious pulmonary masses, consolidations, or ground glass opacities. 2. Mild cardiomegaly. Electronically signed by Mansoor Dallas 11-06-2024 05:28 AM
[2024-11-06 05:31] LABS: Adenovirus PCR Not Detected (NotDetected); Bordetella parapertussis PCR Not Detected (NotDetected); Bordetella pertussis PCR Not Detected (NotDetected); Chlamydia pneumoniae PCR Not Detected (NotDetected); Coronavirus 229E PCR Not Detected (NotDetected); Coronavirus CoV-2 (COVID19)PCR Not Detected (NotDetected); Coronavirus HKU1 PCR Not Detected (NotDetected); Coronavirus NL63 PCR Not Detected (NotDetected); Coronavirus OC43PCR Not Detected (NotDetected); Human Metapneumovirus PCR Not Detected (NotDetected); Influenza A PCR Not Detected (NotDetected); Influenza B PCR Not Detected (NotDetected); Mycoplasma pneumoniae PCR Not Detected (NotDetected); Parainfluenza Virus 1 PCR Not Detected (NotDetected); Parainfluenza Virus 2 PCR Not Detected (NotDetected); Parainfluenza Virus 3 PCR Not Detected (NotDetected); Parainfluenza Virus 4 PCR Not Detected (NotDetected); Respiratory Syncytial VirusPCR Not Detected (NotDetected); Rhinovirus/Enterovirus PCR Not Detected (NotDetected)
[2024-11-06 05:35] LABS: Phosphorus 4.5 mg/dl (2.5-4.9)
--- NOTE | 2024-11-06 05:37 | CT Scan Report ---
EXAM: CT cervical spine wo con CLINICAL HISTORY: FELT NAUSEA THEN FELL TO THE FLOOR TECHNIQUE: Multiple axial images of CT cervical spine without contrast was submitted in bone and soft tissue window. One of the following dose reduction techniques were utilized for this exam: Automated exposure control, adjustment of the mA and/or kV according to patient size, use of iterative reconstruction. CT scan performed according to ALARA principles. Automated exposure control used during the exam. DLP 3583.39 mGy-cm COMPARISON: none FINDINGS: Straightened cervical curve denoting myospasm. Antrolisthesis of C7 over T1 and to less extent C3 over C4. Mild retrolisthesis of C5 over C6 and C6 over C7. The examined vertebral bodies show no structural collapse or posterior neural elements fractures. No vertebral fractures or acute dislocation. Degenerative changes of the atlanto-odontoid articulation with related calcifications. Cervical spondylodegenerative changes evident by marginal osteophytic lipping and multilevel subchondral sclerosis of the examined vertebral end with multilevel disc spaces narrowing. Patchy sclerosis of C5 down to C7 vertebrae. Bilateral C3-C4 down to C6-C7 degenerative unco-vertebral arthropathy with osteophytes formation seen encroaching upon the corresponding neural exit foramina. Multilevel cervico-thoracic degenerative facet arthropathy. Multilevel ligamenta flava subtle calcifications. C3-C4 down to C7-T1 diffuse disc bulges osteophyte complex indenting the theca and encroaching upon the related neural exit foramina. No developmental spinal canal tightness. No paraspinal mases. Vascular atheromatous calcifications. IMPRESSION: 1. No acute vertebral fractures or dislocation. 2. Straightened cervical curve denoting myospasm. 3. Antrolisthesis of C7 over T1 and to less extent C3 over C4. 4. Mild retrolisthesis of C5 over C6 and C6 over C7. 5. Cervical spondylodegenerative changes with multilevel uncovertebral and facet arthropathy along with C3-C4 down to C7-T1 variable degrees of diffuse disc bulges/osteophyte complex inducing spinal canal and neural exit pathway stenosis. Electronically signed by Mansoor Dallas 11-06-2024 05:37 AM
[2024-11-06] MEDS: metroNIDAZOLE 500 MG/100 ML BAG IV STA (05:38)
[2024-11-06] MEDS: POTASSIUM CHLORIDE / WTR 10 MEQ/100 ML PLCT IV SCH (05:41)
--- NOTE | 2024-11-06 05:47 | CT Scan Report ---
EXAM: CT abd pelvis IV con only CLINICAL HISTORY: FELT NAUSEA THEN FELL TO THE FLOOR. TECHNIQUE: A CT scan of the abdomen and pelvis was performed with IV contrast administration. Coronal and sagittal reconstructive images were also obtained. 93 ml of Optiray was administered intravenously. One of the following dose reduction techniques was utilized for this exam: Automated exposure control, adjustment of the mA and/or kV according to patient size, and use of iterative reconstruction. CT scan performed according to ALARA principles. DLP: 3583.39 mGy-cm, CTDI: 120.44 mGy. COMPARISON: None. FINDINGS: Average-sized liver showing homogenous parenchymal attenuation with segment VII subcapsular hypodense area. No dilated intra or extra-hepatic biliary tracts. Distended gall bladder showing no obvious radiodense calculi. Clear surrounding fat planes with no sizeable collections. Normal appearance of the pancreas with clear surrounding fat planes. Shrunken dysmorphic splenic configuration with calcifications. attenuated splenic artery The adrenal glands and IVC are unremarkable. Aortoiliac atheromatous calcifications. Both kidneys are of average size and show a smooth outline and preserved parenchymal thickness. No renal calculi. No hydronephrosis. Left renal hypodense cortical cysts, the largest 5 cm. The urinary bladder is distended showing no obvious masses. Mildly enlarged prostate. Few pelvic phleboli. No free intraperitoneal air. No pelvi-abdominal encysted collections. No obvious pathologically enlarged lymph nodes. left inguinal fat contaning hernia The appendix is not identified. No obvious right iliac inflammatory changes. Colonic fecal loading. Colonic diverticulosis. No diverticulitis. The rest of the ascending colon, the transverse colon, the descending colon, visualized small bowel loops are unremarkable. Diffuse gastric wall thickening. Scanned osseous structures show no osseous destruction. Thoracolumbar spondylosis. Left pubic bone patchy sclerosis and air loculi, possibly osteitis pubis yet associated stress fracture cannot be excluded. Degenerative changes of the sacroiliac joints. IMPRESSION: 1. Right hepatic lobe segment VII subcapsular hypodense area that could represent perfusional changes versus laceration. Advise sonography correlation and follow-up. 2. Shrunken dysmorphic splenic configuration with calcifications. 3. Mildly enlarged prostate. 4. Colonic diverticulosis. No diverticulitis. 5. Diffuse gastric wall thickening, possibly gastritis. 6. Left pubic bone patchy sclerosis and air loculi, possibly osteitis pubis yet associated stress fracture cannot be excluded. Electronically signed by Mansoor Dallas 11-06-2024 05:47 AM
[2024-11-06 05:49] LABS: Base Excess VBG -8.6 mEq/L; HCO3 VBG 17 mmol/L; Oxygen Saturation VBG 79.5 %; PCO2 VBG 33 mmHg (38-50); PO2 VBG 52 mmHg; pH VBG 7.31 (7.36-7.41)
[2024-11-06] MEDS: CALCIUM GLUCONATE 1,000 MG/60 ML BAG IV SCH (06:30)
--- NOTE | 2024-11-06 06:43 | History & Physical Report ---
Date of Service November 06, 2024 Assessment & Plan (1) Hypothermia: (2) Acute hypotension: (3) Atrial fibrillation with rapid ventricular response: (4) Shock: Plan 79 yo male PMHx HTN, afib, T2DM, GERD, HLD, known liver mass admitted after becoming weak and unable to get up while in the bathroom early this morning. #Shock, unclear etiology Does not have signs of acute infection - mild leukocytosis, procal negative, BCx drawn (after cefepime given), started on cefepime and flagyl, Biofire negative Lactate rising on repeat - will give additional 2L plasmalyte ?ischemic abdominal pathology given pain out of proportion on exam - CTA abdomen/pelvis pending FOBT ordered Random cortisol level normal, TSH pending - start parenteral steroids despite this Continue Meche hugger No intracranial pathology Bedside US with ICU PA shows appropriate LV function - formal echo pending He does have and would be preload dependent Afib with RVR on admission Low suspicion for toxic source - EtOH negative, UDS pending Consult to ICU placed Currently on levophed, BP improving Holding all home meds at this time Replete lytes as indicated FENGI: NPO Code status: Full DVT prophylaxis: SCDs Isolation: none Disposition: ICU History of Present Illness Primary Care Provider: NO PCP 79 yo male PMHx HTN, afib, T2DM, GERD, HLD, known liver mass admitted after becoming weak and unable to get up while in the bathroom early this morning. He was in his usual state of health until going to bed last evening. He reports waking up feeing weak this morning. His reports that he called for help from the bathroom and he was unable to get up and EMS was called. When he arrived at the ED he was hypothermic, tachycardic, and hypotensive. He was placed in Meche hugger. A total of 3L crystalloid was administered. A fast exam was performed and negative. He received a CT head, neck, chest, abdomen, pelvis that was unrevealing for specific pathology besides known liver mass. Lactate on arrival was 5.6. Other labs reveal mild leukocytosis, hypokalemia, hypocalcemia. He and his family deny that he may have mistakenly taken anything that may have led to a toxicitiy. He is alert and oriented but lethargic. Responds appropriately to questions. Allergies Allergy/AdvReac Type Severity Reaction Status Date / Time Sulfa (Sulfonamide Allergy Unknown Rash Verified 10/27/24 11:07 Antibiotics) Home Medications Medication Instructions Recorded Confirmed Type blood sugar diagnostic (OneTouch #10 ea 07/22/19 10/27/24 History Verio test strips) multivitamin 1 tab PO DAILY 07/22/19 11/06/24 History aspirin 81 mg tablet 81 mg PO DAILY 08/05/19 11/06/24 History ibuprofen 200 mg capsule 400 mg PO Q12H PRN fever or pain 08/05/19 11/06/24 History lancets 28 gauge (OneTouch #25 ea 08/06/19 10/27/24 Rx [employer] L[employer]) vitamins A,C,T-uduc-rprthl 4,296 4 cap PO DAILY 09/16/23 11/06/24 History mcg-226 mg-90 mg capsule (PreserVision AREDS) amlodipine 10 mg tablet 10 mg PO DAILY #90 tabs 06/15/24 11/06/24 Rx apixaban 5 mg tablet (Eliquis) 5 mg PO BID #180 tabs 07/16/24 11/06/24 Rx lisinopril 40 mg tablet See Rx Instructions .Route 10/05/24 11/06/24 Rx .COMPLEX #90 tabs pantoprazole 40 mg tablet,delayed 40 mg PO DAILY #90 tabs 10/05/24 11/06/24 Rx release atorvastatin 80 mg tablet 80 mg PO DAILY #90 tabs 10/13/24 11/06/24 Rx atenolol 100 mg tablet 100 mg PO DAILY #90 tabs 10/27/24 11/06/24 Rx tirzepatide 5 mg/0.5 mL 5 mg subcut WK 11/06/24 11/06/24 History subcutaneous pen injector (Mounjaro) Past Med/Surg History Problem List (Updated 11/06/24 @ 07:46 by Tangela Caldera PA-C) Alcohol dependence Prolonged QT interval Lactic acidosis Shock Hypothermia (Acute) Chronic anticoagulation (Acute) Fall (Acute) Acute hypotension (Acute) Atrial fibrillation with rapid ventricular response (Acute) Sepsis (Acute) Obesity (BMI 30.0-34.9) Hypertension Atrial fibrillation (Chronic) Diabetes mellitus type 2 in obese Diabetic neuropathy Hyperlipidemia GERD (gastroesophageal reflux disease) Liver mass MR 03/2023 indeterminate, CT indeterminate 09/2023 repeat 1 yr Osteoarthritis (Chronic) Lumbar stenosis with neurogenic claudication Lumbar radiculopathy, chronic Lumbar degenerative disc disease Age-related macular degeneration Medical History Coronary artery calcification seen on CAT scan Diverticulosis AVB (atrioventricular block) Renal cyst, left MRI 08/2022, US 09/2022 simple cyst Tubular adenoma of colon 2018 History of melanoma in situ History of basal cell carcinoma Surgical History H/O colonoscopy 10/2023 Status post Mohs surgery S/P splenectomy S/P appendectomy Family History Father Colorectal cancer Coronary heart disease Mother Amyotrophic lateral sclerosis (ALS) Denies family history of Ovarian cancer Prostate cancer Myocardial infarction Breast cancer Lung cancer Social History Smoking Status: Never smoker Second Hand Exposure: No; Do You Dip or Chew Tobacco: No; Hx Alcohol Use: Yes Alcohol type: wine Alcohol Intake Frequency: 4 or More x per/Week Hx Substance Use: No Preferred Language: Turkish Communication Ability: Effective Visual Impairment: Limited Hearing Ability: Normal Bilingual Loan Processor Required: No Beliefs That Will Affect Care: None marital status: Current Living Situation: Spouse and Family current occupational status: employed 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 How many Children do You have: 2 Feels Safe at Home: Yes Childhood Exposure to Second-Hand Smoke: No Diet: regular caffeine: Yes (2 cups of coffee daily ) during the past year weight has: decreased > 10 lbs Dental Care, Regularly: Yes Physical Activity Frequency: Does not Exercise Seatbelt Use: always Sunscreen Use: Yes Do you think of yourself as: straight/heterosexual Assistive Devices: Glasses Review of Systems Review of Systems: reviewed, per HPI Physical Exam Physical Exam: Constitutional: ill-appearing, no acute distress, AAOx4, lethargic HEENT: NCAT, no conjunctival injection CV: afib ~90-110, + murmur appreciated, extremities well-perfused, no LE edema Resp: CTABL, no wheezes/rales/rhonchi appreciated, no increased work of breathing GI: soft, nondistended, exquisitely tender with no specific localization MSK: no gross deformities appreciated Skin: cool, dry, no rash appreciated Neuro: alert, oriented, no focal neurologic deficit appreciated Results & Data Results & Data Vital Signs (Past 12 Hours) Vital Signs Temp Pulse Pulse Resp BP BP Pulse Ox 11/06/24 06:00 34.0 C L 109 H 18 85/53 L 99 11/06/24 05:54 114 H 23 71/53 L 100 11/06/24 05:45 114 H 20 85/59 L 100 11/06/24 05:45 99 H 20 85/59 L 99 11/06/24 05:31 104 H 20 79/67 L 99 11/06/24 05:20 97 H 18 68/57 L 99 11/06/24 05:10 102 H 20 80/55 L 99 11/06/24 05:05 105 H 18 69/54 L 99 11/06/24 05:00 33.7 C L 106 H 18 76/46 L 99 11/06/24 04:45 114 H 18 95/68 L 98 11/06/24 04:43 101 H 20 98 11/06/24 04:43 99 11/06/24 04:30 99 H 20 78/62 L 98 11/06/24 04:20 109 H 20 67/49 L 100 11/06/24 04:05 33.5 C L 104 H 14 93/69 L 98 11/06/24 03:51 120 H 11/06/24 03:40 33.5 C L 100 H 18 98/59 L 98 11/06/24 03:40 33.5 C L 104 H 18 77/61 L 97 11/06/24 03:40 33.5 C L 96 H 14 78/62 L 99 O2 Del Method O2 Flow Rate 11/06/24 06:00 Room Air 11/06/24 05:54 Room Air 11/06/24 05:45 Room Air 11/06/24 05:45 Room Air 11/06/24 05:31 Room Air 11/06/24 05:20 Room Air 11/06/24 05:10 Room Air 11/06/24 05:05 Room Air 11/06/24 05:00 Nasal Cannula 2 11/06/24 04:45 Nasal Cannula 4 11/06/24 04:43 Nasal Cannula 2 11/06/24 04:43 Nasal Cannula 6 11/06/24 04:30 Nasal Cannula 4 11/06/24 04:20 Nasal Cannula 6 11/06/24 04:05 Nasal Cannula 6 11/06/24 03:51 11/06/24 03:40 Nasal Cannula 6 11/06/24 03:40 Nasal Cannula 6 11/06/24 03:40 Nasal Cannula 6 Supervising Physician Co-Signing Physician Notes Patient seen and examined, chart reviewed, case discussed with Dr. Fong and I agree with the assessment and plan as above. In brief, patient is a 79yo male with history of HTN, DM, GERD, HLP s/p fall this AM - weakness. Patient hypotensive, tachycardic and hypothermic in the ER. Complaining of lower abdominal pain. CT read mentions possible liver hemorrhage vs infarct - FAST exam performed x 2 by ER physician with no blood present in abdomen. H/H repeat has been stable. No clear evidence of infection. Patient is on Amlodipine, Lisinopril and Atenolol. On exam patient is ill in appearance, answering questions but lethargic Skin - no rash HEENT -Dry mucus membranes Heart - +S1/S2, irregularly irregular, 2/6 VINCE across precordium Lungs - CTA, no rales/rhonchi/wheezes Abd - tenderness in RUQ as well as lower abdomen with some voluntary guarding Ext - palpable pulses, warm to touch Labs and images reviewed Assessment/Plan- Concern for Sepsis, unclear source- possible intra-abdominal -Admit to MICU for vasopressor support -Follow cultures sent from ER -Continue antibiotics - Cefepime, Flagyl -Hydrocortisone for relative adrenal insufficiency -Remainder as above Resident Activity Tracking Resident Involvement: Resident Care Provided Care Provided: Adult Hospital Medicine (1) Hypothermia Encounter type: initial encounter Qualified Code(s): T68.XXXA - Hypothermia, initial encounter
[2024-11-06 06:47] LABS: iSTAT Creatinine 0.9 mg/dl (0.6-1.3); iSTAT Ionized Calcium 0.92 mmol/l (1.12-1.32); iSTAT Potassium 3.9 mmol/L (3.3-5.0)
[2024-11-06 07:14] LABS: Basophils # (auto) 0.01 K/uL (0.00-0.20); Basophils % (auto) 0.1 %; Eosinophils # (auto) 0.18 K/uL (0.00-0.50); Eosinophils % (auto) 1.7 %; Hematocrit (blood only) 50.3 % (42.0-52.0); Hemoglobin 17.3 g/dl (14.0-18.0); Immature Granulocytes # (auto) 0.05 K/uL (0.01-0.20); Immature Granulocytes % (auto) 0.5 %; Lymphocytes # (auto) 1.06 K/uL (1.20-3.40); Lymphocytes % (auto) 10.2 %; Mean Corpuscular Hemoglobin 31.6 pg (25.0-34.0); Mean Corpuscular Hgb Conc 34.4 g/dL (32.0-36.0); Mean Platelet Volume 10.8 fL (9.4-12.4); Neutrophils # (auto) 8.97 K/uL (1.40-6.50); Neutrophils % (auto) 86.5 %; Platelet Count 380 K/uL (130-400); RDW Coefficient of Variation 13.4 % (11.5-14.5); RDW Standard Deviation 45.5 fL (36.4-46.3); Red Blood Count 5.47 M/uL (4.70-6.10); White Blood Count 10.37 K/ul (4.8-10.8)
--- NOTE | 2024-11-06 07:14 | Billing Data ---
Date of Service November 06, 2024 Coding Level of Care Code 72388 INT INP/OBS CARE
[2024-11-06 07:31] LABS: Thyroid Stimulating Hormone 9.771 uIu/ml (0.300-4.500)
[2024-11-06] MEDS: OPTIRAY 320 125ml IV ONE (07:36)
--- NOTE | 2024-11-06 07:36 | Critical Care Consultation ---
Date of Consultation November 06, 2024 Assessment & Plan (1) Shock: (2) Hypothermia: (3) Fall: (4) Lactic acidosis: (5) Prolonged QT interval: Empiric Mg given. Level pending. Ensure electrolytes repleted. (6) Liver mass: Being monitored as OP. Primary pursuing CTA given degree of abdominal pain, will F/U result. (7) Alcohol dependence: Plan Neurologic: Multimodal pain management. APAP PRN pain/fever. CIWA. Thiamine and MVI. B12 sent. Passive rewarming ongoing. Cardiovascular: Undifferentiated shock. MAP goal > 65mmHg. May require second agent. Consider arterial line and central access. Hold home antihypertensives. Can continue statin, CK is mildly elevated. History of AVB and bradycardia, could certainly have contributed to event though these appear nocturnal in nature. Home ASA held given gastritis. Respiratory: SpO2 goal > 92%. IS/Flutter. Encourage deep breathing. HOB 30. Concern for undiagnosed SHARLENE, may require sleep study as OP. Gastrointestinal: Advance BRANDI. SUP: PPI. Bowel regimen: Held with diarrhea. Hemoccult negative. Endocrine: TSH pending. Presentation is concerning for uncontrolled hypothyroidism without myxedema coma. No levels in our system. Cortisol < 30, will start SoluCortef due to concern for adrenal insufficiency contributing to shock. BG 140-180 per [facility]M guidelines. Infectious disease: WBC mildly elevated. Procalcitonin is negative. He is continued on empiric antibiotics pending further evaluation. Cefepime appears appropriate at this time. BC x2 pending. MRSA pending. Osteitis pubis on imaging? Will give dose of vancomycin with his profound undifferentiated shock. MSK/Skin/Other: As above Nephrology: Kidney function overall WNL. Electrolytes are being repleted for goal K > 4 and Mg > 2. Trend lactate to clearance. DVT PPX: Restart Eliquis today as able. Code status: Full per patient and . Supervising Physician Co-Signing Physician Notes Patient seen and examined. EMR reviewed. Discussed with critical care BARRY and agree with assessment plan as noted. The patient appears to have a gastrointestinal/viral etiology for his complaints. He appears to be profoundly volume depleted. Continue additional crystalloid administration and wean pressors as tolerated. He has relative adrenal insufficiency so this will be treated as well. His follow-up TSH is normal so I do not think he is suffering from myxedema coma. Continue cefepime for now but no obvious source of bacterial infection on imaging studies. Will transition his anticoagulation to Lovenox full dose for now but should be able to resume Eliquis once he is able to maintain p.o. intake. Hypothermia appears to be correcting. Will continue to follow in the ICU for now. The patient has multiorgan system dysfunction and requires life-sustaining therapies. A total of 65 minutes in critical care time was spent in evaluation management and coordination of care for this patient. History of Present Illness Reason for Consultation: Shock Requesting Physician: Aiden Attending Physician: Aiden History of Present Illness Mr. Nieto is a pleasant 79YOM with a history of melanoma s/p MOHS, atrial fibrillation on LTAC, DMII, HTN/HLD, morbid obesity, GERD, CAD, and lumbar stenosis who presented to [facility] after an unwitnessed fall in his bathroom. Per report, patient went to use toilet, went to get up and next thing he knew he was on the floor. On arrival to ED, patient was significantly hypothermic, hypotensive, and tachycardic. He was also somewhat altered. He received empiric cefepime, metronidazole, and vancomycin as well as 3L IVF. His work-up was remarkable for leukocytosis, hyperglycemia, mildly elevated CK, as well as mild electrolyte disturbances which are being corrected. EKG showed AFRVR with QTc 558. Imaging revealed R hepatic lobe hypodense area which is chronic in nature as well as gastritis and possible osteitis pubis vs stress fracture. He was started on norepinephrine due to persistent hypotension, dose as high as 0.2mcg/kg/min. ICU was consulted for admission. Patient seen in A01. Awake, alert, oriented. He remains hypotensive. Saturating well on room air. Complaining of some diffuse lower abdominal pain which is dull in nature. This comes and goes for the past few days. At times he feels he has to use the restroom but when he tries to go he cannot. Other times he has loose stools which are light in color. He admits to some weakness, otherwise denies symptoms. No sick contacts. Taking all Rx as prescribed, last Eliquis the evening of 11/05/2024. I did give 2g MgSO4 prophylactically prior to return of lab level with his QTc. TSH is pending as well. Brief POCUS performed with limited views - His LV wellington are kissing, EF appears grossly intact. Additional 500cc LR administered while in ED. Allergies Allergy/AdvReac Type Severity Reaction Status Date / Time Sulfa (Sulfonamide Allergy Unknown Rash Verified 10/27/24 11:07 Antibiotics) Home Medications Medication Instructions Recorded Confirmed Type blood sugar diagnostic (OneTouch #10 ea 07/22/19 10/27/24 History Verio test strips) multivitamin 1 tab PO DAILY 07/22/19 10/27/24 History aspirin 81 mg tablet 81 mg PO DAILY 08/05/19 10/27/24 History ibuprofen 200 mg capsule 400 mg PO Q12H PRN fever or pain 08/05/19 10/27/24 History lancets 28 gauge (OneTouch #25 ea 08/06/19 10/27/24 Rx [employer]) vitamins A,C,W-dgyo-yersxx 4,296 4 cap PO DAILY 09/16/23 10/27/24 History mcg-226 mg-90 mg capsule (PreserVision AREDS) amlodipine 10 mg tablet 10 mg PO DAILY #90 tabs 06/15/24 10/27/24 Rx apixaban 5 mg tablet (Eliquis) 5 mg PO BID #180 tabs 07/16/24 10/27/24 Rx tirzepatide 5 mg/0.5 mL 5 mg (0.5 mL) subcut .weekly #2 mL 09/28/24 10/27/24 Rx subcutaneous pen injector (Mounjaro) lisinopril 40 mg tablet See Rx Instructions .Route 10/05/24 10/27/24 Rx .COMPLEX #90 tabs pantoprazole 40 mg tablet,delayed 40 mg PO DAILY #90 tabs 10/05/24 10/27/24 Rx release atorvastatin 80 mg tablet 80 mg PO DAILY #90 tabs 10/13/24 10/27/24 Rx atenolol 100 mg tablet 100 mg PO DAILY #90 tabs 10/27/24 10/27/24 Rx Patient History Medical History Coronary artery calcification seen on CAT scan Diverticulosis AVB (atrioventricular block) Renal cyst, left MRI 08/2022, US 09/2022 simple cyst Tubular adenoma of colon 2018 History of melanoma in situ History of basal cell carcinoma Surgical History H/O colonoscopy 10/2023 Status post Mohs surgery S/P splenectomy S/P appendectomy Family History Father Colorectal cancer Coronary heart disease Mother Amyotrophic lateral sclerosis (ALS) Denies family history of Ovarian cancer Prostate cancer Myocardial infarction Breast cancer Lung cancer Social History Smoking Status: Never smoker Second Hand Exposure: No; Do You Dip or Chew Tobacco: No; Hx Alcohol Use: Yes Alcohol type: wine Alcohol Intake Frequency: 4 or More x per/Week Hx Substance Use: No Preferred Language: Bangladeshi Communication Ability: Effective Visual Impairment: Limited Hearing Ability: Normal Founder Ceo & President Required: No Beliefs That Will Affect Care: None marital status: Current Living Situation: Spouse and Family current occupational status: employed 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 [employer] How many Children do You have: 2 Feels Safe at Home: Yes Childhood Exposure to Second-Hand Smoke: No Diet: regular caffeine: Yes (2 cups of coffee daily ) during the past year weight has: decreased > 10 lbs Dental Care, Regularly: Yes Physical Activity Frequency: Does not Exercise Seatbelt Use: always Sunscreen Use: Yes Do you think of yourself as: straight/heterosexual Assistive Devices: Glasses Review of Systems Constitutional: + weakness Eyes: no diplopia and no spots in vision Does have some periorbital edema which states comes and goes Ear, Nose, Mouth, Throat: +Angular cheilitis. Dry MM. No LAD. Tong ue midline. Respiratory: + dyspnea on exertion and + snoring; no cough, no change in sputum and no wheezing Cardiovascular: + syncope; no chest pain and no calf shane n Gastrointestinal: + abdominal pain, + nausea, + change in stools, + diarrhea/loose stools and + constant urge to pass stools Genitourinary: no dysuria, no urinary frequency or no hematuria Musculoskeletal: no problem reported Integumentary: + dry skin Hand and face swelling Neurologic: + syncope; no localized weakness, no los s of sensation, no abnormal movements, no seizure-like activity, no headache(s) and no abnormal speech Endocrine: + fatigue and + increase in ring/shoe/cunningham t size Hematologic / Lymphatic: no problem reported Physical Exam Constitutional: + obese and cooperative; not in distress Eyes: PERRL, conjunctivae normal, anicteric sclerae ENMT: Mouth: + dry oral mucous membranes Neck: trachea midline, no thyromegaly Respiratory: normal respiratory effort, able to speak in complete sentences and symmetric chest movement Auscultation: + bronchial breath sounds Cardiovascular: Rate/Rhythm: + tachycardic and + irregularly irregular Heart Sounds: + murmur Chest (Breasts): Additional Comments: Protruding sternum, chronic Gastrointestinal (Abdomen): Inspection/Auscultation: + abdominal surgical scar and + hyperactive bowel sounds Percussion/Palpation: + abdomen tender and abdomen soft protuberant. TTP LLQ/RLQ Musculoskeletal: Head/Neck/Chest: head atraumatic Extremities: strength 5/5 throughout Skin: + turgor decreased and + dry skin; no le sions, no jaundice and no nail abnormality Neurologic: moves all extremities and awake; no focal motor deficits Speech / Cognition: + abnormal cognition Motor/Sensory: normal movement Cranial Nerves: PERRL, tongue midline and able to elevate shoulders bilaterally Coordination: + abnormal ssldqt-ol-[id number] test Psychiatric: A+Ox3, euthymic affect Genitourinary: Deferred. Wise in place draining light yellow urine. Results & Data Results & Data Vital Signs (Past 12 Hours) Vital Signs Temp Pulse Pulse Resp BP BP Pulse Ox 11/06/24 07:05 121/86 11/06/24 07:00 108/86 11/06/24 06:59 34.6 C L 102 H 22 121/63 97 11/06/24 06:46 108/73 11/06/24 06:42 122 H 16 11/06/24 06:39 90/74 L 11/06/24 06:39 90/74 L 11/06/24 06:39 90/74 L 11/06/24 06:39 90/74 L 11/06/24 06:39 114 H 21 99 11/06/24 06:31 76/65 L 11/06/24 06:30 96 H 20 11/06/24 06:27 98 H 17 98 11/06/24 06:26 85/69 L 11/06/24 06:26 85/69 L 11/06/24 06:26 85/69 L 11/06/24 06:26 85/69 L 11/06/24 06:23 85/68 L 11/06/24 06:15 73/57 L 11/06/24 06:15 73/57 L 11/06/24 06:06 92/47 L 11/06/24 06:06 92/47 L 11/06/24 06:01 85/53 L 11/06/24 06:01 85/53 L 11/06/24 06:00 34.0 C L 109 H 18 85/53 L 99 11/06/24 05:54 114 H 23 71/53 L 100 11/06/24 05:45 114 H 20 85/59 L 100 11/06/24 05:45 99 H 20 85/59 L 99 11/06/24 05:31 104 H 20 79/67 L 99 11/06/24 05:20 97 H 18 68/57 L 99 11/06/24 05:10 102 H 20 80/55 L 99 11/06/24 05:05 105 H 18 69/54 L 99 11/06/24 05:00 33.7 C L 106 H 18 76/46 L 99 11/06/24 04:45 114 H 18 95/68 L 98 11/06/24 04:43 101 H 20 98 11/06/24 04:43 99 11/06/24 04:30 99 H 20 78/62 L 98 11/06/24 04:20 109 H 20 67/49 L 100 11/06/24 04:05 33.5 C L 104 H 14 93/69 L 98 11/06/24 03:51 120 H 11/06/24 03:40 33.5 C L 100 H 18 98/59 L 98 11/06/24 03:40 33.5 C L 104 H 18 77/61 L 97 11/06/24 03:40 33.5 C L 96 H 14 78/62 L 99 O2 Del Method O2 Flow Rate 11/06/24 07:05 11/06/24 07:00 11/06/24 06:59 Room Air 11/06/24 06:46 11/06/24 06:42 11/06/24 06:39 11/06/24 06:39 11/06/24 06:39 11/06/24 06:39 11/06/24 06:39 11/06/24 06:31 11/06/24 06:30 11/06/24 06:27 11/06/24 06:26 11/06/24 06:26 11/06/24 06:26 11/06/24 06:26 11/06/24 06:23 11/06/24 06:15 11/06/24 06:15 11/06/24 06:06 11/06/24 06:06 11/06/24 06:01 11/06/24 06:01 11/06/24 06:00 Room Air 11/06/24 05:54 Room Air 11/06/24 05:45 Room Air 11/06/24 05:45 Room Air 11/06/24 05:31 Room Air 11/06/24 05:20 Room Air 11/06/24 05:10 Room Air 11/06/24 05:05 Room Air 11/06/24 05:00 Nasal Cannula 2 11/06/24 04:45 Nasal Cannula 4 11/06/24 04:43 Nasal Cannula 2 11/06/24 04:43 Nasal Cannula 6 11/06/24 04:30 Nasal Cannula 4 11/06/24 04:20 Nasal Cannula 6 11/06/24 04:05 Nasal Cannula 6 11/06/24 03:51 11/06/24 03:40 Nasal Cannula 6 11/06/24 03:40 Nasal Cannula 6 11/06/24 03:40 Nasal Cannula 6 Laboratory Results Reviewed Diagnostic Findings Reviewed Medications Administered See [facility] Coding Level of Care Code 26574 CRITICAL CARE 1ST 30-74M Diagnoses Shock R57.9 Hypothermia T68.XXXA Encounter type: initial encounter Fall W19.XXXA Encounter type: initial encounter Lactic acidosis E87.20 Prolonged QT interval R94.31 Liver mass R16.0 Alcohol dependence F10.20 Time Spent (min) 48 (2) Hypothermia Encounter type: initial encounter Qualified Code(s): T68.XXXA - Hypothermia, initial encounter (3) Fall Encounter type: initial encounter Qualified Code(s): W19.XXXA - Unspecified fall, initial encounter
[2024-11-06] MEDS ORDERED: VANCOMYCIN CONSULT ACTIVE PRN (07:41)
[2024-11-06] MEDS ORDERED: ACETAMINOPHEN 325 MG TAB PO PRN (08:01)
[2024-11-06] MEDS ORDERED: CEFEPIME 2000MG 2,000 MG/20 ML SYR IV SCH (08:01)
[2024-11-06] MEDS ORDERED: ICU Protocol for HYPERglycemia SCH (08:01)
[2024-11-06] MEDS: MAGNESIUM SULFATE / D5W 1 GM/100 ML BAG IV SCH (08:06)
[2024-11-06 08:07] LABS: T4 Free Thyroxine 1.34 ng/dl (0.61-1.60)
--- OUTSIDE RECORDS SUMMARY | 2024-11-06 08:10 | External Medical Summary | Summary of Care ---
Author Name Unknown Organization [facility] Address [address] [place] [address] Phone [phone] Care Team Providers Care Tank Farm Gauger Name Role Phone Juice Sylvester DO Primary Care Provider [phone] Reason for Visit * Reason Comments Follow Up * Precert (Within 10 days (routine)) - Authorized Specialty Diagnoses / Procedures Referred By Carlita negro Referred To Contact Ophthalmology Diagnoses Exudative age-related macular degeneration, right eye, with active choroidal neovascularization (HCC) Procedures PA INJECTION, FARICIMAB-SVOA, 0.1 MG PA INTRAVITREAL NJX PHARMACOLOGIC AGT SPX Carlos Saucedo DO Phone: tel: fax: Ophthalmology, [facility] [address] [facility] [place] [address] Phone: tel: fax: Referral ID Status Reason Start Date Expiration Date V isits Requested Visits Authorized [id number] Authorized Precert 11/07/2022 10/27/2099 [id number] Encounter Details Date Type Department Care Team (Late st Contact Info) Description 11/03/2024 2:45 PM EST Office Visit Ophthalmology, [facility] [address] [facility] [place] [address] Carlos Saucedo DO [address] [facility] [place] [address] Exudative age-related macular degeneration of right eye with active choroidal neovascularization (HCC)*; Intermediate stage nonexudative age-related macular degeneration of left eye Allergies Active Allergy Reactions Criticality Noted Date Comments Sulfa Antibiotics 12/19/2023 Other Reaction(s): Rash Sulfonamide Derivatives 06/12/1999 lozol, rash documented as of this encounter (statuses as of 11/03/2024) Medications ATENOLOL 100 MG OR TABSIndications: HTN, goal below 140/90 one tab by mouth daily 34 5 2 Active SIMVASTATIN 40 MG PO TABS Take by mouth . Active MULTIPLE VITAMINS PO TABS 1 daily Act vaishali ASPIRIN 81 MG PO TABS 1 daily Active ADVIL 200 MG PO CAPS 2 capsules twice daily Active NIZORAL 2 % EX SHAM twice weekly Active Atorvastatin Calcium 80 MG Oral Tablet (Lipitor) Take 1 Tablet by mouth in the morning. Active Lisinopril 40 MG Oral Tablet Take 1 Tablet by mouth in the morning. 2 Active Pantoprazole Sodium 40 MG Oral Tablet Delayed Release (Protonix) Take 1 Tablet by mouth in the morning. 2 Active amLODIPine Besylate 10 MG Oral Tablet (Norvasc) 10 MG ORALLY DAILY 2 Active Eliquis 5 MG Oral Tablet Take 1 Tablet by mouth in the morning and 1 Tablet before bedtime. 3 Active Mounjaro 5 MG/0.5ML Subcutaneous Solution Pen-injector Inject 5 mg under the skin once a week. 4 Active PreserVision AREDS 2+Multi Vit Oral Capsule Take 4 Capsules by mouth in the morning. 3 Active Gabapentin 300 MG Oral Capsule (Neurontin) TAKE 1 CAP BY MOUTH AT BEDTIME X7 DAYS THEN 1 CAP TWICE A DAY X7 DAYS THEN 1 CAP 3XS A DAY 3 11/03/19 25 Discontinu ed(Medicat ion List Clean Up) Hospital, Clinic, or Other Facility Administered Medication Ordered Dose Route Frequency Start Date End Date Status ROPivacaine (Naropin) inj 1.5 mgIndications:Exudative age-related macular degeneration of right eye with active choroidal neovascularization (HCC) 1.5 mg PERINEURAL PRN 5 11/03/19 26 Active Faricimab-svoa (Vabysmo) prefilled syringe inj 6 mgIndications:Exudative age-related macular degeneration of right eye with active choroidal neovascularization (HCC) 6 mg IZ PRN 5 11/03/19 26 Active Faricimab-svoa (Vabysmo) intravitreal inj 6 mgIndications:Exudative age-related macular degeneration of right eye with active choroidal neovascularization (HCC) 6 mg IZ PRN 4 11/03/19 25 Discontinued ROPivacaine (Naropin) inj 1.5 mgIndications:Exudative age-related macular degeneration of right eye with active choroidal neovascularization (HCC) 1.5 mg IJ PRN 4 11/03/19 25 Discontinued documented as of this encounter (statuses as of 11/03/2024) Active Problems Problem Noted Date Diagnosed Date Esophageal reflux 01/08/2012 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 08/28 Overview (01/19/2016): ICD-10 update of inactive term PRURIGO papule, lt forehead 11/13/00 09/10/2002 keratosis 09/10/2002 Rosacea 09/10/2002 Seborrheic dermatitis 09/10/2002 Overview (07/29/2017): ICD-10 update of inactive term FAMILY HX-GI MALIGNANCY 03/17/2002 Gout 02/20/2000 Reflux esophagitis HYPERTENSION NOS HYPERLIPIDEMIA NEC-NOS documented as of this encounter (statuses as of 11/03/2024) Immunizations Name Administration Dates Next Due COVID-19 mRNA, LNP-s, No Pre serve, 2-Dose Series (Moderna) 03/10/2022,09/18/2021,12/26/2020,11/23 Diptheria/Tetanus (Adult) 07/26/1992 Seasonal Influenza Vac., MDV , IM, 0.5 mL (Fluzone) 09/11/2002 Seasonal Influenza Virus Vac cine, Unspecified Formulation 07/28/1998,07/28/1994 Seasonal Influenza, Quadriva lent Hd (Fluzone Hd) 07/29/2021 TD - Tetanus/Diptheria (ADULT) 09/11/2002 1 11/11/2011 documented as of this encounter Social History Tobacco Use Types Packs/Day Years Used Date Smoking Tobacco: Former Cigarettes 0.5 5 Smokeless Tobacco: Never Comments:1970 Alcohol Use Standard Drinks/Week Comments Yes 2 (1 standard drink = 0.6 oz pur e alcohol) Sex and Gender Information Value Date Recorded Sex Assigned at Not on file Legal Sex Male 4:56 AM EST Gender Identity Not on file Sexual Orientation Not on file 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 [place] Nursing Notes: Roselyn Nails RN 11/03/24 1459 Signed Beni Nieto III is a 79 year old year old male who presents for AMD OU. Last Office Visit: 08/27/2024 (in office), Visit date not found (telemedicine) Patient currently states no change in vision. Are you diabetic? Yes, did not check this morning "141 over the weekend" Do you drive? yes OCT image(s) of both eyes acquired and filed/scanned into chart. Base Eye Exam Visual Acuity (Snellen - Linear) Right Left Dist cc 20/50 -2 20/25 -1 Dist ph cc 20/40 -2 Correction: Glasses Tonometry (Tonopen, 2:58 PM) Right Left Pressure 18 19 Pupils Pupils APD Right PERRL None Left PERRL None Visual Bull (Counting fingers) Right Left Full Full Extraocular Movement Right Left Full, Ortho Full, Ortho Neuro/Psych Oriented x3: Yes Mood/Affect: Normal Dilation Both eyes: 0.5% Proparacaine @ 2:58 PM Dilation #2 Both eyes: 1.0% Mydriacyl, 2.5% Phenylephrine @ 2:58 PM Dilation #3 Both eyes: 1.0% Mydriacyl, 2.5% Phenylephrine @ 2:59 PM Dilation Comments Patient cautioned that effects of dilation may last 2-7 hours dependant upon individual reaction. It was discussed that driving while dilated is not recommended. EXTERNAL: The ocular adnexae are unremarkable. SLE: Lids/Lashes: wnl OU Conjunctiva/Sclera: quiet OU Cornea: clear OU Anterior Chamber: deep and quiet OU Iris: normal OU; no NVI OU Lens: 2-3+NSC OU Dilated fundus exam OD: vitreous: clear w/ pvd optic nerve: 0.3, no edema/pallor/NVD macula: drusen, resolved trace heme vessels: wnl periphery: wnl, no RT/RD Dilated fundus exam OS: 11/19/2023: vitreous: clear w/ pvd optic nerve: 0.3, no edema/pallor/NVD macula: drusen vessels: wnl periphery: wnl, no RT/RD OCT Interpretation: OD: low ped, drusen, resolved mild srfluid, +pvd--STABLE, prior STABLE, prior improved, prior WORSEPED, prior improved, prior STABLE, prior no sig change, prior improved, prior worse 15um prior improved 78um, prior worse 18um, worse 23um prior STABLE, prior STABLE, prior no sig change, prior improved 37um OS: 11/19/2023: drusen, no cme/srfluid, +pvd A/P: 1. Age-Related Macular Degeneration OU OD: wet -Avastin 05/24/22, 04/13/22, 02/20/22, 01/10/22 -still w/ srfluid on Avastin -switch to Eylea 08/21/22, 07/09/22 -still w/ fluid at 6 weeks -Vabysmo 08/27/24, 06/25/24, 04/03/24, 01/28/24, 11/19/23, 09/17/23, 07/16/23, 05/14/23, 03/04/23, 01/15/23, 11/20/22, 10/16/22 -9.5 weeks; worse at 10 weeks in past; worse PED at 12 weeks -pt is approved for Eylea HD if needed OS: dry -monitor -recommend AREDS2 MVI as directed and Amsler grid qday 2. DM2 -no retinopathy -recommend HgbA1C <7, BP and lipid control. 3. Posterior Vitreous Detachment OU -no RT/RD -advised to return to clinic if he should experience worsening or new floaters, flashes of light, ashadow in the periphery, or decrease in vision. 4. Cataracts OU -retinas stable for CE (tentatively scheduled for 12/22 w/ Dr. Mccarthy) F/u 10-12 weeks, OCT OU Carlos Saucedo DO CC: Nicholas Garcia, OD CC: PCP: Cali Leblanc DO TIMEOUT PROCEDURE: correct patient identity-YES correct procedure and consent-YES verified side and site-YES correct patient position-YES all necessary equipment/prior studies present-YES reviewed special requirements of this patient-YES PROCEDURE: Intravitreal injection of Vabysmo (faricimab) 6mg OD INFORMED CONSENT: Risks, benefits and alternatives have been discussed with the patient. Risks include, but are not limited to: retinal tears, detachments, hemorrhage, glaucoma, infection, cataracts, need for more procedures and the potential risk of arterial thromboembolic events following use of intravitreal VEGF inhibitors defined as nonfatal stroke, nonfatal myocardial infarction or vascular . Patient is aware of these risks and consents to the procedure. DESCRIPTION OF PROCEDURE: The procedure site was confirmed. Topical proparacaine was applied to the surface of the eye after which subconjunctival anesthetic was administered. The area was prepped in the standard aseptic manner with 5% Betadine solution. An eyelid speculum was placed and 6mg (0.05 ml) of Vabysmo was injected 3.75 mm posterior to the limbus into the midvitreous cavity with a 30 gauge short needle. The eye speculum was removed, Betadine was flushed from the eye and optic nerve perfusion was insured. The patient tolerated the procedure without difficulty and was given followup instructions and instructedto use ophthalmic ointment 3x/day as needed. Carlos Saucedo DO, performed the procedure in its entirety. documented in this encounter Nursing Notes * Christi Duff TECH - 11/03/2024 3:15 PM EST Beni Nieto III to receive 12 Vabysmo 6mg Injection of the Right eye. Correct eye confirmed with patient and marked by Carlos Saucedo DO Vabysmo 6mg lot # [id number] Exp. Date: 07/2025 * Roselyn Nails RN - 11/03/2024 2:52 PM EST Bein Nieto III is a 79 year old year old male who presents for AMD OU. Last Office Visit: 08/27/2024 (in office), Visit date not found (telemedicine) Patient currently states no change in vision. Are you diabetic? Yes, did not check this morning "141 over the weekend" Do you drive? yes OCT image(s) of both eyes acquired and filed/scanned into chart. documented in this encounter Plan of Treatment Scheduled Orders Name Type Priority Associated Diagnoses Orde r Schedule RETINA SCAN DIAGNOSTIC IMAGE, POSTERIOR Procedures Routine Exudative age-related macular degeneration of right eye with active choroidal neovascularization (HCC) Intermediate stage nonexudative age-related macular degeneration of left eye Ordered: 11/03/2024 Health Maintenance Due Date Last Done Comments Depression Screening 1957 Albumin/Creatinine Ratio 1965 Hepatitis C Screening 1963 GFR 06/27/2004 06/27/2003, 05/30, 06/25/2003, Additional history exists COVID-19 Vaccine ( season) 2024 08/11/2023, 03/10/2022, 09/18/2021, Additional history exists Influenza Vaccine (FLU shot) (#1) 2024 08/03/2022, 07/29/2021, 07/29/2021, Additional history exists DTap/Tdap Vaccines (2 - Td or Tdap) 03/30/2026 03/30/2016, 09/11/2002, 09/11/2002, Additional history exists Colonoscopy Discontinued 09/17/2002 Colorectal Cancer Screening Discontinued Pneumococcal Vaccine: 50+ Years Completed 10/04/2014, 01/13/2013 Zoster Vaccines Completed 10/06/2022, 06/16/2022 Cologuard Discontinued Fecal Occult Blood Test Discontinued HPV (Gardasil) Vaccine Aged Out No lo nger eligible based on patient's age to complete this topic Hepatitis B Vaccine Aged Out No longe r eligible based on patient's age to complete this topic MENINGOCOCCAL (MENACTRA/MENVEO) Aged Out No longer eligible based on patient's age to complete this topic Sigmoidoscopy Discontinued documented as of this encounter Medical Devices Not on filedocumented as of this encounter Visit Diagnoses Diagnosis Exudative age-related macular degeneration of right eye with active choroidal neovascularization (HCC)- Primary Intermediate stage nonexudative age-related macular degeneration of left eye documented in this encounter Administered Medications Active Administered Medications - up to 3 most recent administrations Medication Order MAR Action Action Date Dose Rate Site Faricimab-svoa (Vabysmo) prefilled syringe inj 6 mg 6 mg, Intravitreal, PRN Other, Starting on Sat11/03/24 at 1523, Until Sat11/03/25 at 1522, For 365 days, Each syringe should only be used for the treatment of a single eye. Only use the provided injection filter needle for the administration. Syringe must be stored under refrigeration and away from light. Syringe must reach room temperature prior to administration. May be kept at room temperature for up to 24 hours.Indications:Exudative age-related macular degeneration of right eye with active choroidal neovascularization (HCC) Given 11/03/2024 3:27 PM EST 6 mg Eye Right ROPivacaine (Naropin) inj 1.5 mg 1.5 mg, Perineural, PRN Other, Starting on Sat11/03/24 at 1523, Until Sat11/03/25 at 1522, For 365 daysIndications:Exudative age-related macular degeneration of right eye with active choroidal neovascularization (HCC) Given 11/03/2024 3:24 PM EST 1.5 mg Eye Right documented in this encounter Care Teams Tank Farm Gauger Relationship Specialty Start Date End Date Juice Sylvester DO [address] [address] PCP - General Family Medicine 08/21/22 documented as of this encounter
--- OUTSIDE RECORDS SUMMARY | 2024-11-06 08:10 | External Medical Summary | Summary of Care ---
Author Name Unknown Organization [facility] Address [address] [place] [address] Phone [phone] Care Team Providers Care Tractor Trailer Driver Name Role Phone Juice Sylvester DO Primary Care Provider [phone] Reason for Visit * Reason Comments Follow Up * Precert (Within 10 days (routine)) - Authorized Specialty Diagnoses / Procedures Referred By Carlita negro Referred To Contact Ophthalmology Diagnoses Exudative age-related macular degeneration, right eye, with active choroidal neovascularization (HCC) Procedures OR INJECTION, FARICIMAB-SVOA, 0.1 MG OR INTRAVITREAL NJX PHARMACOLOGIC AGT SPX Carlos Saucedo DO Phone: tel: fax: Ophthalmology, [facility] [address] [facility] [place] [address] Phone: tel: fax: Referral ID Status Reason Start Date Expiration Date V isits Requested Visits Authorized [id number] Authorized Precert 11/07/2022 10/27/2099 [id number] Encounter Details Date Type Department Care Team (Late st Contact Info) Description 11/03/2024 2:45 PM EST Office Visit Ophthalmology, [facility] [address] [facility] [place] [address] Carlos Saucedo DO [address] 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 Date: 07/2025 * Roselyn Nails RN - 11/03/2024 2:52 PM EST Beni Nieto III is a 79 year [...] documented in this encounter Plan of Treatment Upcoming Encounters Date Type Department Care Team (Late st Contact Info) Description 01/19/2025 2:45 PM EDT Office Visit Ophthalmology, [facility] [address] [place] [address] Carlos Saucedo DO [address] [place] [address] Scheduled Orders Name Type Priority Associated Diagnoses [...] Right documented in this encounter Care Teams Tractor Trailer Driver Relationship Specialty Start Date End Date Juice Sylvester DO [address] [place] [address] PCP - General Family Medicine 08/21/22 documented as of this encounter
[2024-11-06] MEDS: VANCOMYCIN HCL 2,000 MG in SODIUM CHLORIDE 0.9% 500 ML IV ONE (08:12)
[2024-11-06] MEDS ORDERED: PANTOprazole 40 MG/10 ML SYR IV SCH (09:00)
[2024-11-06 09:09] LABS: Amphetamines+Metham, Urine Neg (Neg); Barbiturates, Urine Neg (Neg); Benzodiazepine, Urine Neg (Neg); Cocaine, Urine Neg (Neg); Fentanyl, Urine Neg (Neg); MDMA (Ecstacy), Urine Neg (Neg); Marijuana, Urine Neg (Neg); Methadone, Urine Neg (Neg); Opiate, Urine Neg (Neg); Phencyclidine, Urine Neg (Neg)
[2024-11-06] MEDS: PANTOprazole 40 MG/10 ML SYR IV SCH (09:10)
[2024-11-06] MEDS: MULTIVITAMIN TAB PO SCH (09:10)
[2024-11-06] MEDS: FOLIC ACID 1 MG TAB PO SCH (09:10)
[2024-11-06] MEDS: THIAMINE HCL 100 MG TAB PO SCH (09:10)
[2024-11-06] MEDS: PLASMA-LYTE A 2,000 ML IV ONE (09:11)
[2024-11-06] MEDS: ICU Protocol for HYPERglycemia SCH (09:11)
[2024-11-06] MEDS: ONDANSETRON INJ 2 MG/ML 2 ML VIAL IV PRN (09:14)
--- NOTE | 2024-11-06 09:15 | CT Scan Report ---
EXAM: CT angio abdomen pelvis w con CLINICAL HISTORY: c/o RUQ pain hypotension TECHNIQUE: CTA of the abdomen and pelvis was performed with IV contrast (120ml Optiray 320). Coronal and sagittal reconstructive images were also obtained. One of these 3D techniques was utilized: Maximum Intensity Pixel (MIP), 3D Reconstructed Images, Volume Rendered Images, Surface Shaded Rendering. Axial non-contrast sections of the abdomen and pelvis were also obtained. One of the following dose reduction techniques was utilized for this exam. Automated exposure control, adjustment of the mA and/or kV according to patient size, and use of iterative reconstruction. CTDI: 27.39, DLP: 1476.82 mGy.cm COMPARISON: None. FINDINGS: Aorta: Mild aortic intimal atherosclerotic calcifications with no stenosis. The abdominal aorta is normal in caliber. No evidence of aneurysm, or dissection. Aortic bifurcation is unremarkable. Renal Arteries: Mild renal arteries ostium intimal atherosclerotic calcifications with no stenosis. Double right renal arteries, normal variant. Renal arteries are normal in size and opacification. No evidence of stenosis or occlusion. Symmetric perfusion of both kidneys. Mesenteric Arteries: Mild SMA ostium intimal atherosclerotic calcifications with no stenosis. The superior mesenteric artery (SMA) and inferior mesenteric artery (MIK) are normal in caliber and opacification. No evidence of stenosis or occlusion. Celiac Artery: The Mild celica trunk and splenic artery intimal atherosclerotic calcifications with no stenosis. Celiac artery is normal in caliber and opacification. No evidence of stenosis or occlusion. Iliac Arteries: Mild bilateral iliac arteries intimal atherosclerotic calcifications with no stenosis. Common, internal, and external iliac arteries are normal in caliber and opacification. No evidence of stenosis, aneurysm, or occlusion. Abdominal and pelvis findings are described in a dedicated report. IMPRESSION: 1. Mild aortoiliac and aortic branches intimal atherosclerotic calcifications with no stenosis. 2. No evidence of stenosis, aneurysm, dissection, or occlusion. 3. Abdominal and pelvis findings are described in a dedicated report. Electronically signed by Mansoor Dallas 11-06-2024 09:14 AM
[2024-11-06] MEDS ORDERED: GLUCOSE 40% GEL 15 GM TUBE PO PRN (09:45)
[2024-11-06] MEDS ORDERED: GLUCOSE 10 TAB/TUBE PO PRN (09:45)
[2024-11-06] MEDS ORDERED: DEXTROSE 50% 50 ML SYRINGE IV PRN (09:45)
[2024-11-06] MEDS ORDERED: CARBOHYDRATES FOR HYPOGLYCEMIA PO PRN (09:45)
[2024-11-06] MEDS ORDERED: GLUCAGON FOR INJ 1 MG VIAL SQ PRN (09:45)
[2024-11-06 10:26] LABS: iSTAT Ionized Calcium 0.98 mmol/l (1.12-1.32); iSTAT Potassium 3.7 mmol/L (3.3-5.0)
[2024-11-06 10:41] LABS: Adenovirus F 40/41 PCR Not Detected (NotDetected); Astrovirus PCR Not Detected (NotDetected); Campylobacter PCR Not Detected (NotDetected); Cryptosporidium PCR Not Detected (NotDetected); Cyclospora cayetanensis PCR Not Detected (NotDetected); Entamoeba histolytica PCR Not Detected (NotDetected); Enteroaggregative E.coli(EAEC) Not Detected (NotDetected); Enteropathogenic E.coli (EPEC) Not Detected (NotDetected); Enterotoxigenic E.coli (ETEC) Not Detected (NotDetected); Giardia lamblia PCR Not Detected (NotDetected); Norovirus GI/GII PCR Not Detected (NotDetected); Plesiomonas shigelloides PCR Not Detected (NotDetected); Rotavirus A PCR Not Detected (NotDetected); Salmonella PCR Not Detected (NotDetected); Sapovirus PCR Not Detected (NotDetected); Shiga-like Toxin E.coli (STEC) Not Detected (NotDetected); Shigella/Enteroinvasive E.coli Not Detected (NotDetected); Vibrio cholerae PCR Not Detected (NotDetected); Vibrio species PCR Not Detected (NotDetected); Yersinia enterocolitica PCR Not Detected (NotDetected)
[2024-11-06] MEDS: HYDROCORTISONE SOD 50 MG in SYRINGE 0 ML IV SCH (11:05)
[2024-11-06] MEDS: ENOXAPARIN 100 MG/1ML SYR SQ SCH (11:05)
[2024-11-06] MEDS: HYDROCORTISONE SOD SUCCINATE 100 MG/2 ML VIAL IV STA (11:05)
[2024-11-06] MEDS: CEFEPIME 2000MG 2,000 MG/20 ML SYR IV SCH (11:06)
[2024-11-06] MEDS: PLASMA-LYTE A 1,000 ML IV SCH ×2 (11:06→23:15)
[2024-11-06] MEDS: INSULIN ASPART PER UNIT CHARGE SC SCH (11:28)
[2024-11-06] MEDS ORDERED: HYDROCORTISONE SOD SUCCINATE 100 MG/2 ML VIAL IV SCH (12:00)
[2024-11-06 12:30] LABS: Cdiff Toxin B Gene (2yr or >) Positive Cdiff Gene (Neg)
[2024-11-06 12:32] LABS: Cdiff Antigen Negative; Cdiff Toxin A+B Negative Cdiff Toxin (Negative)
--- NOTE | 2024-11-06 14:33 | Communication Note ---
Date of Service: November 06, 2024 The patient was seen by me. Family is at the bedside. He is on a Levophed infusion. He has systemic shock of undetermined etiology at this point. He is hypothermic also but his thyroid status is acceptable. Atenolol and amlodipine are on hold. Head CT scan revealed nonacute changes. EKG reveals atrial fibrillation with right ventricular rate. Management per repairer typewriter at this point.
[2024-11-06 14:42] LABS: Base Excess VBG -7.5 mEq/L; HCO3 VBG 17 mmol/L; Oxygen Saturation VBG 70.8 %; PCO2 VBG 33 mmHg (38-50); PO2 VBG 45 mmHg; pH VBG 7.33 (7.36-7.41)
[2024-11-06 15:12] LABS: Albumin Globulin Ratio 1.4 (0.9-2); Albumin Level 3.1 gm/dl (3.4-5.0); BUN Creatinine Ratio 16.8 (10-20); Bilirubin,Total 0.8 mg/dl (0.2-1.0); Calcium 7.7 mg/dl (8.6-10.3); Creatinine Clr Calc Pharmacy 66.9 ml/min; Globulin 2.2 gm/dl (2.5-4.0); Potassium 3.9 mmol/L (3.5-5.1); Total Protein 5.3 gm/dl (6.0-8.3)
--- NOTE | 2024-11-06 16:14 | XCELERA ---
[id number] \\[id number]
--- NOTE | 2024-11-06 17:29 | Electrocardiogram Report ---
Test Reason : Blood Pressure : */* mmHG Vent. Rate : 116 BPM Atrial Rate : * BPM P-R Int : * ms QRS Dur : 92 ms QT Int : 402 ms P-R-T Axes : * 52 48 degrees QTcB Int : 558 ms Atrial fibrillation with rapid ventricular response Prolonged QT Abnormal ECG When compared with ECG of 27-Oct-2024 11:00, (unconfirmed) QT has lengthened Confirmed by Erick [place] ([id number]) on 11/06/2024 5:29:19 PM Referred By: REFERRED SELF Confirmed By: Erick [place]
[2024-11-06] MEDS: PLASMA-LYTE A 500 ML IV ONE (19:38)
[2024-11-07] MEDS: DIGOXIN 500 MCG in SYRINGE 8 ML IV ONE (00:30)
[2024-11-07 05:30] LABS: Hematocrit (blood only) 41.1 % (42.0-52.0); Hemoglobin 14.2 g/dl (14.0-18.0); Mean Corpuscular Hemoglobin 31.4 pg (25.0-34.0); Mean Corpuscular Hgb Conc 34.5 g/dL (32.0-36.0); Mean Corpuscular Volume 90.9 fL (80.0-100.0); Mean Platelet Volume 11.4 fL (9.4-12.4); Platelet Count 283 K/uL (130-400); RDW Coefficient of Variation 13.9 % (11.5-14.5); RDW Standard Deviation 46.2 fL (36.4-46.3); Red Blood Count 4.52 M/uL (4.70-6.10); White Blood Count 22.82 K/ul (4.8-10.8)
[2024-11-07] MEDS: DIGOXIN 250 MCG in SYRINGE 9 ML IV ONE (05:32)
[2024-11-07 05:46] LABS: Bilirubin Direct 0.2 mg/dl (0-0.2); Bilirubin,Total 0.7 mg/dl (0.2-1.0); Calcium 7.8 mg/dl (8.6-10.3); Creatinine Clr Calc Pharmacy 67.6 ml/min; Potassium 3.9 mmol/L (3.5-5.1); Total Protein 5.2 gm/dl (6.0-8.3)
--- NOTE | 2024-11-07 07:25 | Critical Care Progress Note ---
Date of Service November 07, 2024 Assessment & Plan (1) Shock: (2) Hypothermia: (3) Fall: (4) Lactic acidosis: (5) Prolonged QT interval: (6) Liver mass: (7) Alcohol dependence: Plan Impression: 79-year-old male presenting to the emergency room with altered mental status, hypotension, hypothermia, and lactic acidosis concerning for potential septic shock. Etiology not clearly identified although GI appears to be most likely given abdominal pain and nausea vomiting with diarrhea. 24-hour events: Patient was admitted to the ICU. He received additional fluid resuscitation which enabled discontinuation of vasopressor agents. He was given IV digoxin last night due to A-fib with rapid ventricular response. Recommendations: 1. Neurologic: Metabolic encephalopathy appears cleared. The patient is awake alert conversant this morning. No indication for additional imaging currently. History of alcohol use. Continue thiamine and folate. No signs for withdrawal currently. Initiate PT and OT evaluations and out of bed to chair as tolerated. 2. Cardiovascular: Septic shock currently resolved. He now has atrial fibrillation with rapid ventricular response. He is on atenolol in the outpatient setting. Will discontinue IV digoxin and placed on IV/p.o. meto prolol now. His anticoagulation is being accomplished with full dose Lovenox. Can restart DOAC once clinically stable. Lactate decreasing 3. Pulmonary: No current issues. Continue incentive spirometry. Out of bed to chair as tolerated. 4. GI: Nausea and vomiting with diarrhea. BioFire negative for enteric pathogens. Some residual pain in the left lower quadrant but imaging was unremarkable. Continue supportive care at this point time and advance diet to full liquid. Continue serial exams and if the patient has continued or progressive discomfort in the left lower quadrant, consider repeat imaging at that point in time. Can discontinue PPI 5. Renal: Hyponatremia improved today. On ICU electrolyte protocol. 6. Endocrine: Relative adrenal insufficiency. Continue hydrocortisone and Florinef with plans to taper to off over the next 3 to 5 days. 7. Heme-onc: Leukocytosis likely reactive or secondary to demargination from steroids. Continue to follow clinically. 8. ID: Day #2 empiric cefepime. Seems reasonable to continue for 3 days for empiric intra-abdominal pathology. Follow white blood cell count fever curve. Patient is feeling significant clinical improvement. His critical care issues have resolved. He can be transferred to the floor under the care of the hospitalist. Critical care services will sign off. Feel free to contact us with questions or concerns Admission and Anticipated Discharge Date Admission Date: November 06, 2024 Subjective Patient seen and examined. EMR reviewed. Discussed with bedside critical care nurse and on multidisciplinary rounds. The patient states he is feeling better. He is been off vasopressor agents. He continues to have some pain in the left lower quadrant. His nausea is improved. Diarrhea is also improved. He does not have much of an appetite as of yet. He is not experiencing any chest pain or palpitations Review of Systems Review of Systems: All systems reviewed & are unremarkable except as noted in Subjective Physical Exam Constitutional: WD/WN, vitals as above Neck: trachea midline, no thyromegaly Respiratory: normal respiratory effort, lungs clear to auscultation Cardiovascular: Rate/Rhythm: + tachycardic and + irregularly irregular Heart Sounds: normal S1 and normal S2 Extremities: + edema Gastrointestinal (Abdomen): Inspection/Auscultation: abdomen normal to inspection; abdomen not distended Percussion/Palpation: + abdomen tender Tender to palpation left lower quadrant Musculoskeletal: Extremities: extremities normal to inspection Skin: no rashes, warm and dry Neurologic: Nonfocal exam Lymphatic: no cervical lymphadenopathy Results & Data Results & Data Vital Signs (Past 12 Hours) Vital Signs Temp Pulse Pulse Resp BP BP Pulse Ox 11/07/24 07:03 36.9 C 119 H 19 95 11/07/24 07:00 136/87 11/07/24 06:03 37.0 C 120 H 20 91 11/07/24 06:00 129/78 11/07/24 05:39 36.9 C 125 H 17 96 11/07/24 05:36 36.9 C 108 H 24 95 11/07/24 05:06 36.9 C 105 H 20 93 11/07/24 05:00 104/76 11/07/24 05:00 104/76 11/07/24 04:45 36.9 C 121 H 16 93 11/07/24 04:36 36.8 C 120 H 18 95 11/07/24 04:09 36.9 C 113 H 19 95 11/07/24 04:00 115/76 11/07/24 04:00 36.9 C 118 H 21 115/76 96 11/07/24 03:00 37 C 118 H 22 100/78 92 11/07/24 02:03 37.0 C 128 H 20 96 11/07/24 02:00 123/88 11/07/24 01:57 37.0 C 103 H 21 95 11/07/24 01:30 37.1 C 115 H 24 93 11/07/24 01:15 37.1 C 119 H 23 92 11/07/24 01:00 37.1 C 115 H 17 122/72 93 11/07/24 00:00 124 H 11/07/24 00:00 37.3 C 115 H 22 97/73 L 95 11/06/24 23:06 37.4 C 125 H 21 91 11/06/24 22:39 37.5 C 133 H 23 93 11/06/24 22:06 37.5 C 126 H 25 H 91 11/06/24 22:00 107/65 11/06/24 22:00 107/65 11/06/24 21:45 37.5 C 126 H 10 L 95 11/06/24 21:33 37.5 C 109 H 23 92 11/06/24 21:00 37.5 C 119 H 19 87/67 L 94 11/06/24 20:00 37.5 C 122 H 20 106/74 97 11/06/24 19:35 122 H 25 H 96/73 L 94 O2 Del Method 11/07/24 07:03 Room Air 11/07/24 07:00 11/07/24 06:03 11/07/24 06:00 11/07/24 05:39 11/07/24 05:36 11/07/24 05:06 11/07/24 05:00 11/07/24 05:00 11/07/24 04:45 11/07/24 04:36 11/07/24 04:09 11/07/24 04:00 11/07/24 04:00 Room Air 11/07/24 03:00 Room Air 11/07/24 02:03 Room Air 11/07/24 02:00 11/07/24 01:57 11/07/24 01:30 11/07/24 01:15 11/07/24 01:00 Room Air 11/07/24 00:00 11/07/24 00:00 Room Air 11/06/24 23:06 11/06/24 22:39 11/06/24 22:06 11/06/24 22:00 11/06/24 22:00 11/06/24 21:45 11/06/24 21:33 11/06/24 21:00 Room Air 11/06/24 20:00 Room Air 11/06/24 19:35 Room Air Critical Care Results & Data Vital Signs (Past 12 Hours) Vital Signs Temp Pulse Pulse Resp BP BP Pulse Ox 11/07/24 07:03 36.9 C 119 H 19 95 11/07/24 07:00 136/87 11/07/24 06:03 37.0 C 120 H 20 91 11/07/24 06:00 129/78 11/07/24 05:39 36.9 C 125 H 17 96 11/07/24 05:36 36.9 C 108 H 24 95 11/07/24 05:06 36.9 C 105 H 20 93 11/07/24 05:00 104/76 11/07/24 05:00 104/76 11/07/24 04:45 36.9 C 121 H 16 93 11/07/24 04:36 36.8 C 120 H 18 95 11/07/24 04:09 36.9 C 113 H 19 95 11/07/24 04:00 115/76 11/07/24 04:00 36.9 C 118 H 21 115/76 96 11/07/24 03:00 37 C 118 H 22 100/78 92 11/07/24 02:03 37.0 C 128 H 20 96 11/07/24 02:00 123/88 11/07/24 01:57 37.0 C 103 H 21 95 11/07/24 01:30 37.1 C 115 H 24 93 11/07/24 01:15 37.1 C 119 H 23 92 11/07/24 01:00 37.1 C 115 H 17 122/72 93 11/07/24 00:00 124 H 11/07/24 00:00 37.3 C 115 H 22 97/73 L 95 11/06/24 23:06 37.4 C 125 H 21 91 11/06/24 22:39 37.5 C 133 H 23 93 11/06/24 22:06 37.5 C 126 H 25 H 91 11/06/24 22:00 107/65 11/06/24 22:00 107/65 11/06/24 21:45 37.5 C 126 H 10 L 95 11/06/24 21:33 37.5 C 109 H 23 92 11/06/24 21:00 37.5 C 119 H 19 87/67 L 94 11/06/24 20:00 37.5 C 122 H 20 106/74 97 11/06/24 19:35 122 H 25 H 96/73 L 94 O2 Del Method 11/07/24 07:03 Room Air 11/07/24 07:00 11/07/24 06:03 11/07/24 06:00 11/07/24 05:39 11/07/24 05:36 11/07/24 05:06 11/07/24 05:00 11/07/24 05:00 11/07/24 04:45 11/07/24 04:36 11/07/24 04:09 11/07/24 04:00 11/07/24 04:00 Room Air 11/07/24 03:00 Room Air 11/07/24 02:03 Room Air 11/07/24 02:00 11/07/24 01:57 11/07/24 01:30 11/07/24 01:15 11/07/24 01:00 Room Air 11/07/24 00:00 11/07/24 00:00 Room Air 11/06/24 23:06 11/06/24 22:39 11/06/24 22:06 11/06/24 22:00 11/06/24 22:00 11/06/24 21:45 11/06/24 21:33 11/06/24 21:00 Room Air 11/06/24 20:00 Room Air 11/06/24 19:35 Room Air Lab & Micro Results (Past 24 Hours) RBC 4.52 M/uL (4.70-6.10) L 11/07/24 WBC 22.82 K/ul (4.8-10.8) H 11/07/24 Hgb 14.2 g/dl (14.0-18.0) 11/07/24 Hct 41.1 % (42.0-52.0) L 11/07/24 MCV 90.9 fL (80.0-100.0) 11/07/24 MCH 31.4 pg (25.0-34.0) 11/07/24 MCHC 34.5 g/dL (32.0-36.0) 11/07/24 RDW Standard Deviation 46.2 fL (36.4-46.3) 11/07/24 RDW Coefficient of Variation 13.9 % (11.5-14.5) 11/07/24 Plt Count 283 K/uL (130-400) 11/07/24 MPV 11.4 fL (9.4-12.4) 11/07/24 Na 135 mmol/L (136-145) L 11/07/24 K 3.9 mmol/L (3.5-5.1) 11/07/24 Cl 106 mmol/L (98-107) 11/07/24 CO2 20 mmol/L (21-32) L 11/07/24 Anion Gap 9 (3-11) 11/07/24 BUN 23 mg/dl (6-23) 11/07/24 Creatinine 1.00 mg/dl (0.6-1.4) 11/07/24 BUN/Creatinine Ratio 23.0 (10-20) H 11/07/24 Glu 160 mg/dl (70-99(Fasting)) H 11/07/24 Ca 7.8 mg/dl (8.6-10.3) L 11/07/24 Total Bilirubin 0.7 mg/dl (0.2-1.0) 11/07/24 Direct Bilirubin 0.2 mg/dl (0-0.2) 11/07/24 AST 33 U/L (13-39) 11/07/24 ALT 27 U/L (7-52) 11/07/24 Alkaline Phosphatase 45 U/L (34-104) 11/07/24 TP 5.2 gm/dl (6.0-8.3) L 11/07/24 Albumin 3.0 gm/dl (3.4-5.0) L 11/07/24 Globulin 2.2 gm/dl (2.5-4.0) L 11/06/24 Albumin/Globulin Ratio 1.4 (0.9-2) 11/06/24 Calcium Level 7.8 mg/dl (8.6-10.3) L 11/07/24 04:45 Venous Blood pH 7.33 (7.36-7.41) L 11/06/24 23:59 Venous Blood Partial Pressure CO2 33 mmHg (38-50) L 11/06/24 23 :59 Venous Blood Partial Pressure O2 45 mmHg 11/06/24 23:59 Venous Blood HCO3 17 mmol/L 11/06/24 23:59 Venous Blood Base Excess -7.5 mEq/L 11/06/24 23:59 Venous Blood Oxygen Saturation 70.8 % 11/06/24 23:59 Microbiology 11/06/24 05:30 Aerobic Blood Culture - Preliminary Blood No growth in Aerobic bottle after 24 hours. Anaerobic Blood Culture - Preliminary No growth in Anaerobic bottle after 24 hours. 11/06/24 05:30 Aerobic Blood Culture - Preliminary Blood No growth in Aerobic bottle after 24 hours. Diagnostic Findings (Past 24 Hours) Abdomen/Pelvis CTA 11/06/24 06:20 EXAM: CT angio abdomen pelvis w con CLINICAL HISTORY: c/o RUQ pain hypotension TECHNIQUE: CTA of the abdomen and pelvis was performed with IV contrast (120ml Optiray 320). Coronal and sagittal reconstructive images were also obtained. One of these 3D techniques was utilized: Maximum Intensity Pixel (MIP), 3D Reconstructed Images, Volume Rendered Images, Surface Shaded Rendering. Axial non-contrast sections of the abdomen and pelvis were also obtained. One of the following dose reduction techniques was utilized for this exam. Automated exposure control, adjustment of the mA and/or kV according to patient size, and use of iterative reconstruction. CTDI: 27.39, DLP: 1476.82 mGy.cm COMPARISON: None. FINDINGS: Aorta: Mild aortic intimal atherosclerotic calcifications with no stenosis. The abdominal aorta is normal in caliber. No evidence of aneurysm, or dissection. Aortic bifurcation is unremarkable. Renal Arteries: Mild renal arteries ostium intimal atherosclerotic calcifications with no stenosis. Double right renal arteries, normal variant. Renal arteries are normal in size and opacification. No evidence of stenosis or occlusion. Symmetric perfusion of both kidneys. Mesenteric Arteries: Mild SMA ostium intimal atherosclerotic calcifications with no stenosis. The superior mesenteric artery (SMA) and inferior mesenteric artery (MIK) are normal in caliber and opacification. No evidence of stenosis or occlusion. Celiac Artery: The Mild celica trunk and splenic artery intimal atherosclerotic calcifications with no stenosis. Celiac artery is normal in caliber and opacification. No evidence of stenosis or occlusion. Iliac Arteries: Mild bilateral iliac arteries intimal atherosclerotic calcifications with no stenosis. Common, internal, and external iliac arteries are normal in caliber and opacification. No evidence of stenosis, aneurysm, or occlusion. Abdominal and pelvis findings are described in a dedicated report. IMPRESSION: 1. Mild aortoiliac and aortic branches intimal atherosclerotic calcifications with no stenosis. 2. No evidence of stenosis, aneurysm, dissection, or occlusion. 3. Abdominal and pelvis findings are described in a dedicated report. Electronically signed by Mansoor Dallas 11-06-2024 09:14 AM I & O Totals 24 Hours 11/06/24 11/07/24 11/08/24 06:59 06:59 06:59 Intake Total 2594.624 / 2594.624 7063.308 / 7063.308 Output Total 2171 / 2171 Balance 2594.624 / 2594.624 4892.308 / 4892.308 Cumulative 11/06/24 03:39 thru 11/07/24 06:49 Intake Total 9657.932 Output Total 2171 Balance 7486.932 RT Ventilator Mngmt (Last Documented) Ventilator Ordered Settings Respiratory Rate 19 11/07/24 07:03 Ventilator - PT Measurements Respiratory Rate 19 Coding Level of Care Code 63399 SUB INP/OBS CARE 3/50MIN Diagnoses Shock R57.9 Hypothermia T68.XXXA Encounter type: initial encounter Fall W19.XXXA Encounter type: initial encounter Lactic acidosis E87.20 Prolonged QT interval R94.31 Liver mass R16.0 Alcohol dependence F10.20 (2) Hypothermia Encounter type: initial encounter Qualified Code(s): T68.XXXA - Hypothermia, initial encounter (3) Fall Encounter type: initial encounter Qualified Code(s): W19.XXXA - Unspecified fall, initial encounter
[2024-11-07] MEDS: METOPROLOL TARTRATE 1 MG/ML VIAL IV STA (07:49)
[2024-11-07] MEDS: METOPROLOL TARTRATE 25 MG TAB PO SCH (08:01)
[2024-11-07] MEDS ORDERED: METOPROLOL TARTRATE 1 MG/ML VIAL IV PRN (08:04)
[2024-11-07] MEDS: ATENOLOL 50 MG TABLET PO SCH (11:18)
[2024-11-07] MEDS: INSULIN ASPART PER UNIT CHARGE SC SCH (11:19)
--- NOTE | 2024-11-07 14:58 | Hospitalist Progress Note ---
Date of Service November 07, 2024 Assessment & Plan (1) Hypothermia: Plan: Resolved with warming blanket. Thyroid profile unremarkable. (2) Acute hypotension: Plan: Undifferentiated shock present on admission. He is now off pressor support (3) Atrial fibrillation with rapid ventricular response: Plan: Controlled rate. Atenolol restarted. Metoprolol discontinued. Currently on Lovenox 90 mg subcutaneously every 12 hours. Cardiac echo reveals mild left ventricular hypertrophy with normal ejection fraction. Repeat EKG ordered Plan Transfer out of ICU today, November 07. Obtain occupational therapy and physical therapy assessments. Parenteral hydrocortisone dosage decreased. Continue Lovenox 90 mg subcutaneously every 12 hours. Eventual transition to Eliquis. Admission and Anticipated Discharge Date Admission Date: November 06, 2024 Subjective Alert and oriented. Now off pressor support. Vital signs are stable. Blood cultures remain negative. Atrial fibrillation is controlled. Atenolol has been restarted. Metoprolol discontinued. Parenteral steroid dosage decreased. He will be transferred out of the ICU today, November 07. Lovenox will eventually be switched to Eliquis Review of Systems 2 Review of Systems: Constitutionalno fever or chills ENTno blurred vision, no double vision, no epistaxis, no sore throat Respiratoryno cough, no wheezing, no shortness of breath Cardiacno palpitations, no chest pain, no syncope Sachin nausea, vomiting, diarrhea, melena, hematochezia. Feels "queasy" however GUno urinary retention, no urinary incontinence, no dysuria, no hematuria Musculoskeletalno joint pain, no muscle tenderness Skinno bruising, no rashes, no pruritus Neurono isolated weakness, no paresthesia, no weakness Psychno depression, no anxiety Physical Exam 2 Physical Exam: General-alert and oriented x3, no fever, no chills HEENT-head atraumatic and normocephalic, pupils equal and reactive to light, extraocular muscles intact Neck-no lymphadenopathy or thyromegaly, trachea midline Chest-clear to auscultation. No rales, wheezing or rhonchi Cardiac-irregular rhythm. Controlled rate. Normal S1 and S2 Abdomen-normal bowel sounds, no hepatosplenomegaly Extremities-no cyanosis, clubbing, or edema Neuro-cranial nerves II through XII intact, motor and sensory function within normal limits, strength symmetrical, no focal deficits Psych-normal affect, normal mood Results & Data Results & Data Vital Signs (Past 12 Hours) Vital Signs Temp Pulse Resp BP Pulse Ox O2 Del Method 11/07/24 13:00 134/90 11/07/24 12:57 37.2 C 94 H 22 95 11/07/24 12:00 37.1 C 115 H 23 95 Room Air 11/07/24 12:00 144/88 H 11/07/24 11:09 37.0 C 104 H 20 95 11/07/24 11:00 144/92 H 11/07/24 10:57 37.0 C 112 H 15 95 11/07/24 10:03 37.0 C 108 H 20 92 11/07/24 10:00 126/77 11/07/24 09:00 37.2 C 105 H 20 95 11/07/24 09:00 129/83 11/07/24 08:36 131/82 11/07/24 08:07 124/89 11/07/24 08:04 112 H 145/84 H 11/07/24 08:00 36.9 C 106 H 19 94 11/07/24 08:00 145/84 H 11/07/24 07:49 117 H 136/87 11/07/24 07:30 36.9 C 124 H 12 96 11/07/24 07:03 36.9 C 119 H 19 95 Room Air 11/07/24 07:00 136/87 11/07/24 06:03 37.0 C 120 H 20 91 11/07/24 06:00 129/78 11/07/24 05:39 36.9 C 125 H 17 96 11/07/24 05:36 36.9 C 108 H 24 95 11/07/24 05:06 36.9 C 105 H 20 93 11/07/24 05:00 104/76 11/07/24 05:00 104/76 11/07/24 04:45 36.9 C 121 H 16 93 11/07/24 04:36 36.8 C 120 H 18 95 11/07/24 04:09 36.9 C 113 H 19 95 11/07/24 04:00 115/76 11/07/24 04:00 36.9 C 118 H 21 115/76 96 Room Air 11/07/24 03:00 37 C 118 H 22 100/78 92 Room Air Laboratory Results 11/07/24 04:45 01/11/25 04:45 PG Care Time/CCT Total # of Minutes Spent Total Time Spent with Patient: Total time spent is greater than 50% in coordination of care (as documented) at patient's floor/unit and/or counseling patient: Coding Level of Care Code 22540 SUB INP/OBS CARE 3/50MIN Diagnoses Hypothermia T68.XXXA Encounter type: initial encounter Acute hypotension I95.9 Atrial fibrillation with rapid ventricular response I48.91 (1) Hypothermia Encounter type: initial encounter Qualified Code(s): T68.XXXA - Hypothermia, initial encounter
[2024-11-07] MEDS: HYDROCORTISONE SOD 25 MG in SYRINGE 0 ML IV SCH (15:42)
[2024-11-07] MEDS ORDERED: DIGOXIN 250 MCG in SYRINGE 9 ML IV SCH (16:00)
[2024-11-07] MEDS: DIGOXIN 0.125 MG TAB PO ONE (18:05)
[2024-11-07] MEDS: PANTOprazole 40 MG TAB PO SCH (20:46)
[2024-11-08 09:35] LABS: Basophils # (auto) 0.03 K/uL (0.00-0.20); Basophils % (auto) 0.2 %; Eosinophils # (auto) 0.12 K/uL (0.00-0.50); Eosinophils % (auto) 0.7 %; Hematocrit (blood only) 35.4 % (42.0-52.0); Hemoglobin 12.6 g/dl (14.0-18.0); Immature Granulocytes # (auto) 0.13 K/uL (0.01-0.20); Immature Granulocytes % (auto) 0.8 %; Lymphocytes # (auto) 1.01 K/uL (1.20-3.40); Lymphocytes % (auto) 5.9 %; Mean Corpuscular Hemoglobin 32.1 pg (25.0-34.0); Mean Corpuscular Hgb Conc 35.6 g/dL (32.0-36.0); Mean Corpuscular Volume 90.1 fL (80.0-100.0); Mean Platelet Volume 11.3 fL (9.4-12.4); Monocytes # (auto) 0.91 K/uL (0.11-0.59); Monocytes % (auto) 5.3 %; Neutrophils # (auto) 14.87 K/uL (1.40-6.50); Neutrophils % (auto) 87.1 %; Platelet Count 196 K/uL (130-400); RDW Coefficient of Variation 13.6 % (11.5-14.5); RDW Standard Deviation 45.4 fL (36.4-46.3); Red Blood Count 3.93 M/uL (4.70-6.10); White Blood Count 17.07 K/ul (4.8-10.8)
[2024-11-08 10:06] LABS: BUN Creatinine Ratio 19.4 (10-20); Calcium 7.8 mg/dl (8.6-10.3); Creatinine Clr Calc Pharmacy 101.2 ml/min; Potassium 3.2 mmol/L (3.5-5.1)
[2024-11-08] MEDS: APIXABAN 5 MG TABLET PO SCH (10:21)
[2024-11-08] MEDS: POTASSIUM CHLORIDE CRTAB 20 MEQ TABCR PO STA (12:28)
--- NOTE | 2024-11-08 14:23 | Hospitalist Progress Note ---
Date of Service November 08, 2024 Assessment & Plan (1) Hypothermia: Plan: Resolved with warming blanket. Thyroid profile unremarkable. (2) Acute hypotension: Plan: Undifferentiated shock present on admission. He is now off pressor support. No evidence of bacterial infection (3) Atrial fibrillation with rapid ventricular response: Plan: Controlled rate. Atenolol has been restarted. Metoprolol has been discontinued. Digoxin has been started for rate control. Lovenox has been switched back to his usual oral Eliquis. Cardiac echo reveals mild left ventricular hypertrophy with normal ejection fraction. Plan I see no reason for him to be in isolation. Parenteral steroids have been discontinued. Continue OT and PT. Hopeful discharge to home within the next day or 2. Admission and Anticipated Discharge Date Admission Date: November 06, 2024 Subjective Alert and oriented. Family is in attendance. I see no reason why he needs to be in isolation. This has been discontinued. Digoxin level 0.7. Digoxin was added yesterday, November 07, for rate control. He also remains on atenolol. Potassium replacement given orally today, November 08. Lovenox subcutaneous has been switched to oral Eliquis which she takes at home. Intravenous hydrocortisone has been discontinued. Continue OT and PT. Hopeful discharge to home soon Review of Systems 2 Review of Systems: Constitutionalno fever or chills ENTno blurred vision, no double vision, no epistaxis, no sore throat Respiratoryno cough, no wheezing, no shortness of breath Cardiacno palpitations, no chest pain, no syncope Sachin nausea, vomiting, diarrhea, melena, hematochezia. Feels "queasy" however GUno urinary retention, no urinary incontinence, no dysuria, no hematuria Musculoskeletalno joint pain, no muscle tenderness Skinno bruising, no rashes, no pruritus Neurono isolated weakness, no paresthesia, no weakness Psychno depression, no anxiety Physical Exam 2 Physical Exam: General-alert and oriented x3, no fever, no chills HEENT-head atraumatic and normocephalic, pupils equal and reactive to light, extraocular muscles intact Neck-no lymphadenopathy or thyromegaly, trachea midline Chest-clear to auscultation. No rales, wheezing or rhonchi Cardiac-irregular rhythm. Controlled rate. Normal S1 and S2 Abdomen-normal bowel sounds, no hepatosplenomegaly Extremities-no cyanosis, clubbing, or edema Neuro-cranial nerves II through XII intact, motor and sensory function within normal limits, strength symmetrical, no focal deficits Psych-normal affect, normal mood Results & Data Results & Data Vital Signs (Past 12 Hours) Vital Signs Temp Pulse Pulse Resp BP Pulse Ox O2 Del Method 11/08/24 11:48 36.5 C 85 18 142/88 H 93 Room Air 11/08/24 07:58 36.7 C 114 H 18 133/85 94 Room Air 11/08/24 07:11 111 H 11/08/24 03:32 37.1 C 103 H 18 153/82 H 95 Room Air Laboratory Results 11/08/24 09:20 11/08/24 09:20 PG Care Time/CCT Total # of Minutes Spent Total Time Spent with Patient: Total time spent is greater than 50% in coordination of care (as documented) at patient's floor/unit and/or counseling patient: Coding Level of Care Code 44420 SUB INP/OBS CARE 2/35MIN Diagnoses Hypothermia T68.XXXA Encounter type: initial encounter Acute hypotension I95.9 Atrial fibrillation with rapid ventricular response I48.91 (1) Hypothermia Encounter type: initial encounter Qualified Code(s): T68.XXXA - Hypothermia, initial encounter
[2024-11-08] MEDS: DIGOXIN 0.25 MG TAB PO SCH (16:07)
[2024-11-09 06:39] LABS: BUN Creatinine Ratio 14.3 (10-20); Calcium 8.5 mg/dl (8.6-10.3); Creatinine Clr Calc Pharmacy 94.3 ml/min; Potassium 3.5 mmol/L (3.5-5.1)
[2024-11-09 07:22] VITALS: RESP 20; TEMP 98.2
[2024-11-09 11:22] VITALS: O2SAT 95
--- NOTE | 2024-11-09 11:43 | Discharge Summary ---
Discharge Summary Date of Service November 09, 2024 Principal Dx & Hospital Course #1 = Principal Diagnosis (1) Hypothermia: Resolved with warming blanket. Thyroid profile unremarkable. (2) Acute hypotension: Undifferentiated shock present on admission. He is now off pressor support. No evidence of bacterial infection (3) Atrial fibrillation with rapid ventricular response: Controlled rate. Atenolol has been restarted. Metoprolol has been discontinued. Digoxin has been started for rate control. Lovenox has been switched back to his usual oral Eliquis. Cardiac echo reveals mild left ventricular hypertrophy with normal ejection fraction. Plan I see no reason for him to be in isolation. Parenteral steroids have been discontinued. Continue OT and PT. Hopeful discharge to home within the next day or 2. Admission HPI Per Admitting Provider 79 yo male PMHx HTN, afib, T2DM, GERD, HLD, known liver mass admitted after becoming weak and unable to get up while in the bathroom early this morning. He was in his usual state of health until going to bed last evening. He reports waking up feeing weak this morning. His reports that he called for help from the bathroom and he was unable to get up and EMS was called. When he arrived at the ED he was hypothermic, tachycardic, and hypotensive. He was placed in Meche hugger. A total of 3L crystalloid was administered. A fast exam was performed and negative. He received a CT head, neck, chest, abdomen, pelvis that was unrevealing for specific pathology besides known liver mass. Lactate on arrival was 5.6. Other labs reveal mild leukocytosis, hypokalemia, hypocalcemia. He and his family deny that he may have mistakenly taken anything that may have led to a toxicitiy. He is alert and oriented but lethargic. Responds appropriately to questions. Discharge Exam GENERAL APPEARANCE NAD, activity normal for age, well developed/ well nourished, no cyanosis, pallor, or diaphoresis. EYES lids/conjunctiva normal. EARS/NOSE/THROAT Mucous membranes moist, nares normal, lips/teeth normal uvula midline without oral pharyngeal erythema, exudate or swelling TMs normal bilaterally. No lymphangitis/lymphedema. HEAD/NECK normocephalic atraumatic, no facial trauma, neck is supple. RESPIRATORY respiratory effort normal, speaks in full sentences, no tripod position, no accessory muscle use. Lungs clear to auscultation without rhonchi, wheezes, rales CARDIAC Regular rate and rhythm, no edema. ABDOMINAL Soft, ND/NT. No evidence of fluid wave. No pulsatile masses on exam, rebound tenderness, Larsen sign or pain over Mcburney's point. MUSCLES/EXTREMITIES No abnormal range of motion, no swelling. SKIN Warm, pink and dry. No rashes, dermatoses, petechiae or lesions. NEUROLOGICAL Speech is clear and appropriate. Normal level of consciousness. Gait and coordination are normal. 5/5 strength in all extremities. PSYCH Normal mood and affect. Judgement/competence is appropriate Discharge Plan Discharge Items Patient Disposition: Home - Self-Care Reason For Visit: HYPTENSION ON PRESSORS Discharge Diagnosis: hypothermia Activity: Resume your previous activity Non-emergency contact: Primary Care Provider Call non-emergency contact if: you have any medication questions Follow-up/Referrals: PCP,NO [Primary Care Provider] - Diet: Regular Addtl Attending Provider Instructions: Follow up with PCP in 2 weeks Pending Studies at Discharge: No Stand-Alone Forms: My [facility] Workfolio, Smoking Cessation Medications and DC Order Prescriptions: Continued amlodipine 10 mg tablet 10 mg PO DAILY Qty: 90 3RF Eliquis 5 mg tablet 5 mg PO BID Qty: 180 3RF pantoprazole 40 mg tablet,delayed release (DR/EC) 40 mg PO DAILY Qty: 90 3RF lisinopril 40 mg tablet See Rx Instructions .ROUTE .COMPLEX Qty: 90 3RF Dose Instruction: TAKE 1 TABLET (40 MG) ORALLY DAILY Rx Instructions: TAKE 1 TABLET (40 MG) ORALLY DAILY atorvastatin 80 mg tablet 80 mg PO DAILY Qty: 90 3RF (DME) lancets [OneTouch SureSoft Lancing Dev] 28 gauge misc See Dose Instructions .ROUTE .MEDSUPPLY Qty: 25 0RF Dose Instruction: As directed Rx Instructions: As directed (DME) OneTouch Verio test strips strip See Dose Instructions .ROUTE .MEDSUPPLY Qty: 10 Rx Instructions: As directed multivitamin tablet 1 tab PO DAILY Rx Instructions: Unable to verify OTC meds at this date/time. aspirin 81 mg tablet 81 mg PO DAILY Rx Instructions: Unable to verify OTC meds at this date/time. ibuprofen 200 mg capsule 400 mg PO Q12H PRN (Reason: fever or pain) Rx Instructions: Unable to verify OTC meds at this date/time. PreserVision AREDS 4,296 mcg-226 mg-90 mg capsule 4 cap PO DAILY Rx Instructions: Unable to verify OTC meds at this date/time. atenolol 100 mg tablet 100 mg PO DAILY Qty: 90 3RF Mounjaro 5 mg/0.5 mL pen injector 5 mg subcut WK Discharge Orders: Discharge Order (Routine); Ordered 11/09/24 Ordered By: Driss Ortiz Admission Data Admit Date/Time: 11/06/24 05:42 Attending Provider: Driss Ortiz Admit Provider: Eleonora Wolfe Primary Care Provider: PCP,NO Other Providers: Eleonora Wolfe; Alexandr Bullock Hospital Stay Data Consultations 11/06/24 05:25 ED Decision to Admit Stat 11/06/24 08:01 Consult [employer] Routine Diagnostic Imagining Performed 11/06/24 03:53 CT abd pelvis IV con only Stat CT cervical spine wo con Stat CT chest diagnostic w con Stat CT head/brain wo con Stat 11/06/24 06:20 CT angio abdomen pelvis w con Stat Pending Results Patient Have Any Pending Studies at Discharge: No Discharge Instructions Given to Patient (Per Discharging Provider) Follow up with PCP in 2 weeks Total Time Total Time Spent Total Time Spent (In Minutes): 50 Coding Level of Care Code 71734 INP/OBS DISCH >30 MIN Diagnoses Hypothermia T68.XXXA Encounter type: initial encounter Acute hypotension I95.9 Atrial fibrillation with rapid ventricular response I48.91
[2024-11-09 11:49] VITALS: BP 127/87; PULSE 114
--- NOTE | 2024-11-10 06:38 | Electrocardiogram Report ---
Test Reason : Blood Pressure : */* mmHG Vent. Rate : 120 BPM Atrial Rate : * BPM P-R Int : * ms QRS Dur : 78 ms QT Int : 336 ms P-R-T Axes : * 14 41 degrees QTcB Int : 475 ms Atrial fibrillation with rapid ventricular response Nonspecific T wave abnormality Abnormal ECG When compared with ECG of 06-Nov-2024 04:28, QT has shortened Confirmed by Nitin Montes ([id number]) on 11/10/2024 6:38:35 AM Referred By: REFERRED SELF Confirmed By: Nitin Montes
--- NOTE | 2024-11-10 06:41 | Electrocardiogram Report ---
Test Reason : Blood Pressure : */* mmHG Vent. Rate : 120 BPM Atrial Rate : 122 BPM P-R Int : * ms QRS Dur : 82 ms QT Int : 304 ms P-R-T Axes : * 14 82 degrees QTcB Int : 429 ms Atrial fibrillation with rapid ventricular response Nonspecific T wave abnormality Abnormal ECG When compared with ECG of 07-Nov-2024 15:48, No significant change was found Confirmed by Nitin Montes ([id number]) on 11/10/2024 6:41:13 AM Referred By: REFERRED SELF Confirmed By: Nitin Montes
== END 2024-11-09 12:49 | disposition home or self-care (01) | DRG 291 ==
LOC: ED 03:46 → SUATTDRO 05:42 → 1E 05:42 → 2W 11-07 16:14